=== PATIENT | female | born 1965 | race Caucasian/White ===

== ENCOUNTER 2019-08-07 12:30 | Outpatient (REF) | payer MEDICAID, SELFPAY ==
[2019-08-07 19:45] LABS: Abs Immature Grans 0.02 k/cumm (0.0-0.09); Absolute Basophil Count 0.04 k/cumm (0.0-0.2); Absolute Eosinophil Count 0.23 k/cumm (0.0-0.7); Absolute Lymphocyte Count 2.57 k/cumm (1.2-3.4); Absolute Neutrophil Count 8.64 k/cumm (1.2-6.7); Basophils % 0.3; Eosinophils % 1.8; HCT 38.5 % (36.0-46.0); HGB 12.8 g/dL (12.0-15.5); Immature Grans % 0.2 %; Lymphocytes % 20.4; Mean Corp. HGB Concentration 33.2 g/dL (32.0-36.0); Mean Corpuscular Hemoglobin 30.1 pg (27.0-33.0); Mean Corpuscular Volume 90.6 fL (80-95); Mean Platelet Volume 9.4 fL (8.0-11.0); Monocytes % 8.7; Neutrophils % 68.6; Platelet Count 547 x1000/uL (130-400); RBC 4.25 m/cumm (4.00-5.20); RBC Distribution Width 12.7 % (11.7-14.6); White Blood Cell Count 12.59 k/cumm (4.4-10.8)
[2019-08-07 20:05] LABS: ALT 21 U/L (14-59); AST 18 U/L (15-37); Albumin 3.2 g/dL (3.4-5.0); Alkaline Phosphatase 78 U/L (46-116); Anion Gap 7.7 mmol/L (3-11); BUN 12 mg/dL (7-18); Bilirubin, Total 0.2 mg/dL (0.2-1.0); CO2 28.3 mmol/L (21.0-32.0); Calcium 9.3 mg/dL (8.5-10.1); Chloride 100 mmol/L (98-107); Glucose 86 mg/dL (74-106); Potassium 4.1 mmol/L (3.5-5.1); Sodium 136 mmol/L (136-145); TSH (W/Ref FT4) 0.25 uIU/mL (0.36-3.74); Total Protein 7.4 g/dL (6.4-8.2)
[2019-08-07 20:50] LABS: Hemoglobin A1C 5.7 % (3.8-5.6)
[2019-08-07 21:12] LABS: FREE T4 1.18 ng/dL (0.76-1.46)
[2019-08-09 08:48] LABS: Thyroglobulin Antibody 193 U/mL (<=60); Thyroperoxidase Antibody <28 U/mL (<=60)
[2019-08-13 13:12] LABS: Thyrotropin Receptor Ab <1.00 IU/L
== END 2019-08-07 12:50 ==
LOC: NCHCN 12:30
PROVIDERS: PCP Internal Medicine; Visit Provider Physician Assistant
DX: J02.9 Acute pharyngitis, unspecified (principal); R73.03 Prediabetes; E06.9 Thyroiditis, unspecified; J30.2 Other seasonal allergic rhinitis; E16.2 Hypoglycemia, unspecified
CPT/HCPCS: 80053; 86376; 83036; 84235; 84439; 84443; 85025

== ENCOUNTER 2019-08-30 02:17 | Outpatient (CLI) | payer MEDICAID, SELFPAY ==
--- NOTE | 2019-08-30 13:00 | DI.US_ITS ---
EXAM: US THYROID CLINICAL HISTORY: THYROIDITIS, E06.9 TECHNIQUE: Ultrasound performed using standard protocol. COMPARISON: No exams were available for comparison FINDINGS: Thyroid ultrasound was performed according to the usual protocol. Right thyroid lobe measures 50 x 2 3 x 16 millimeters, left thyroid lobe measures 43 x 15 x 13 millimeters. Thyroid isthmus is about 2 millimeters in thickness. There is marked heterogeneity of thyroid parenchyma. Multiple focal nodules are also identified, non e larger than 9 millimeters in diameter. These all appear fairly well circumscribed and are hyperech oic to hypoechoic in appearance. TIRADS score, TR 4. No prior study available for comparison. IMPRESSION: Findings consistent with multinodular goiter. No dominant thyroid nodule identified. Multiple small nodules, TIRADS score TR 4. Follow-up examination may be obtained in 12 months due to the size and indeterminate appearance of some of these lesions. DATA REPOSITORY:
== END 2019-08-30 02:37 ==
PROVIDERS: PCP Internal Medicine; Visit Provider Physician Assistant
DX: E06.5 Other chronic thyroiditis (principal); E04.2 Nontoxic multinodular goiter
CPT/HCPCS: 76536

== ENCOUNTER 2019-11-12 13:36 | Outpatient (REF) | payer MEDICAID, SELFPAY ==
[2019-11-12 20:17] LABS: FREE T4 0.75 ng/dL (0.76-1.46); TSH 6.74 uIU/mL (0.36-3.74)
[2019-11-12 20:20] LABS: Hemoglobin A1C 5.2 % (3.8-5.6)
== END 2019-11-12 13:56 ==
LOC: NCHCN 13:36
PROVIDERS: PCP Internal Medicine; Visit Provider Physician Assistant
DX: E06.9 Thyroiditis, unspecified (principal); R73.03 Prediabetes
CPT/HCPCS: 83036; 84439; 84443

== ENCOUNTER 2020-01-22 12:15 | Outpatient (REF) | payer MEDICAID, SELFPAY ==
--- NOTE | 2020-01-22 11:55 | PAPFT_PTH ---
PATIENT: Traci Santana LOC: [facility] U#:[id number] AGE/SX: 54/F ROOM: RE01/22/[address]: Celeste Barcenas : 1965 BED: DIS: 01/22/2020 SPEC #: [id number] RECD: 01/23/20 12:45 STATUS: CHARLES REQ #: [id number] AFSHIN: 01/22/20 11:[address]: Celeste Barcenas DEPT: [facility] Cytology RECD BY: Arielle Rapp ENTERED: 01/23/20 12:45 SP TYPE: PAPFT OTHR DR: Pantera Zavala Tissues: 1 - CX/ENDOCX FOR PAP SMEARS Procedures: PAP THIN PREP/UVM Screening HPV DNA PROBE Comments: [id number] ([facility] [place])
[2020-01-22 20:06] LABS: Abs Immature Grans 0.02 10^3/uL (0.0-0.06); Absolute Basophil Count 0.07 10^3/uL (0.0-0.2); Absolute Eosinophil Count 0.22 10^3/uL (0.0-0.7); Absolute Neutrophil Count 5.66 10^3/uL (1.2-6.7); Basophils % 0.7; Eosinophils % 2.3; HCT 38.7 % (36.0-46.0); HGB 13.1 g/dL (11.2-15.7); Immature Grans % 0.2; Lymphocytes % 29.3; MCH 31.9 pg (27.0-33.0); MCHC 33.9 % (32.0-36.0); MCV 94.2 fL (80-95); MPV 10.3 fL (8.0-11.0); Monocytes % 8.4; Neutrophils % 59.1; Nucleated RBC 0 %; Platelet Count 328 10^3/uL (130-400); RBC 4.11 10^6/uL (3.93-5.22); RDW-SD 41.6 fL; WBC 9.57 10^3/uL (4.4-10.8)
[2020-01-22 20:22] LABS: ALT 26 U/L (14-59); AST 24 U/L (15-37); Albumin 3.7 g/dL (3.4-5.0); Alkaline Phosphatase 59 U/L (46-116); Anion Gap 7.4 mmol/L (3-11); BUN 17 mg/dL (7-18); Bilirubin, Total 0.3 mg/dL (0.2-1.0); CO2 26.6 mmol/L (21.0-32.0); CREATININE 0.75 mg/dL (0.55-1.02); Chloride 102 mmol/L (98-107); Glucose 90 mg/dL (74-106); LDL CHOLESTEROL 132 mg/dL (<100); Potassium 4.1 mmol/L (3.5-5.1); Sodium 136 mmol/L (136-145); Total Protein 7.2 g/dL (6.4-8.2)
[2020-01-22 20:44] LABS: FREE T4 0.85 ng/dL (0.76-1.46)
[2020-01-29 11:59] LABS: T3, Total 141 ng/dL (97-169)
[2020-01-31 10:41] LABS: FSH 8.2 mIU/mL; LH 1.4 mIU/mL; Thyroglobulin Antibody 47 U/mL (<or=60); Thyroperoxidase Antibody 31 U/mL (<or=60)
== END 2020-01-22 12:35 ==
LOC: NCHCN 12:15
PROVIDERS: PCP Internal Medicine; Visit Provider Physician Assistant
DX: N92.0 Excessive and frequent menstruation with regular cycle (principal); R73.03 Prediabetes; Z13.220 Encounter for screening for lipoid disorders; E06.9 Thyroiditis, unspecified; Z12.4 Encounter for screening for malignant neoplasm of cervix; Z01.419 Encounter for gynecological examination (general) (routine) without abnormal findings; Z11.59 Encounter for screening for other viral diseases
CPT/HCPCS: 80053; 83721; 86376; 88142; 83001; 83002; 84439; 84443; 84480; 85025; 87624

== ENCOUNTER 2020-01-31 00:36 | Outpatient (CLI) | payer MEDICAID, SELFPAY ==
--- NOTE | 2020-01-31 | DI.US_ITS ---
EXAM: US PELVIS TRANSVAGINAL CLINICAL HISTORY: IRREGULAR PERIODS,N92.6,MENORRHAGIA,N92.0. TECHNIQUE: Transabdominal and transvaginal pelvic ultrasound was performed using standard protocol. COMPARISON: No exams were available for comparison FINDINGS: KIDNEYS: Kidneys are symmetric in size. No evidence of renal calculi. No evidence of hydronephrosis. No renal mass or cyst identified. UTERUS: Position: Anteverted. Size: 7.7 long by 4.3 AP by 5.4 transverse cm Endometrium: 0.3 cm. Normal for patient's menstrual status. Myometrium: Several isoechoic and hypoechoic masses within the myometrium. This is consistent with m ultiple fibroids. The largest measures 1.9 x 1.5 x 1.3 cm and is located in the posterior body. Cervix: Nabothian cysts. OVARIES: Right: 2.8 x 1.4 x 1.7 cm Cyst or mass: None. Left: Not visualized. No left adnexal mass seen sonographically. DOPPLER: Color: Symmetric and uniform flow to both ovaries. No hyperemia. CUL-DE-SAC: Free fluid: None. Other: None. IMPRESSION: 1. Normal sonographic appearance of the kidneys. 2. Uterine fibroids. 3. Unremarkable right ovary. Left ovary not visualized sonographically. No left adnexal mass seen s onographically. DATA REPOSITORY:
== END 2020-01-31 00:56 ==
PROVIDERS: PCP Physician Assistant; Visit Provider Physician Assistant
DX: N92.0 Excessive and frequent menstruation with regular cycle (principal); N92.6 Irregular menstruation, unspecified; D25.9 Leiomyoma of uterus, unspecified
CPT/HCPCS: 76830; 76856

== ENCOUNTER 2020-02-19 01:43 | Outpatient (CLI) | payer MEDICAID, SELFPAY ==
--- NOTE | 2020-02-19 11:56 | DI.MAMMO_ITS ---
EXAM: MAMMO SCREENING CLINICAL HISTORY: SCREENING,BASELINE,Z12.31 TECHNIQUE: Mammograms were interpreted according to the usual protocol including computer analysis w [employer] CAD system, tomosynthesis and C-view imaging. COMPARISON: None. Baseline examination. FINDINGS: The breasts are composed of mainly fatty density , Breast Density category A. No suspicious masses or suspicious microcalcifications are seen. . No skin thickening or abnormal axillary lymph nodes are seen. There has been no significant change from prior exams. IMPRESSION: BI-RADS Category 1, Negative mammogram Yearly screening mammography is recommended. Breast Density - Category A, fatty density. A negative radiographic report should not delay biopsy if a dominant or clinically suspicious mass is present. Up to ten percent of cancers are not identified on mammography. A negative report may reinforce clinical impression. Adenosis and dense breasts may obscure an underlying neoplasm. False positive reports average 6 to 10%. Patient will receive a letter notifying them of these results.
== END 2020-02-19 02:03 ==
PROVIDERS: PCP Physician Assistant; Visit Provider Physician Assistant
DX: Z12.31 Encounter for screening mammogram for malignant neoplasm of breast (principal)
CPT/HCPCS: 77063; 77067

== ENCOUNTER 2020-04-17 04:27 | Outpatient (CLI) | payer MEDICAID, SELFPAY ==
[2020-04-18 22:13] LABS: COVID-19 RT-PCR Result NEGATIVE (Negative)
== END 2020-04-17 04:47 ==
PROVIDERS: PCP Physician Assistant; Visit Provider Surgery
DX: Z11.52 Encounter for screening for COVID-19 (principal); Z01.818 Encounter for other preprocedural examination
CPT/HCPCS: U0003

== ENCOUNTER 2020-04-21 08:14 | Day surgery (SDC) | payer MEDICAID, SELFPAY ==
--- NOTE | 2020-04-21 07:14 | W.COLOREPORT ---
Date of service: 04/21/20 Time of Service: : Colonoscopy Report Date of procedure: 04/21/20 Pre-op diagnosis general: Colon Cancer Screening Post-op diagnosis procedure note: other (polyp, internal and external hemorrhoids) Procedure: Colonoscopy with polypectomy Surgeon: Jennifer Cruz Anesthesia proc note operative: other (General/ASA 2/Rachel Quintero, LIZ) Estimated blood loss (mL): 2 Pathology: other (descending polyp) Complications: None Disposition: same day Indications: The patient is here for Colonoscopy pre-op. She has no family history of colon cancer. She has not had any bowel habit changes. -Discussed colonoscopy bowel prep as well as the procedure. Discussed possible complications of the procedure to include bleeding, pain, perforation, missed small lesion/polyp, sore throat, aspiration and adverse reaction to the medications. Questions were answered to patient?s satisfaction. No guarantees were implied or given. Prep: Miralax/Dulcolax Procedure Start Time: : Procedure End Time: : Retraction Time: 17 minutes Findings: external hemorrhoids internal hemorrhoids grade 1 one small polyp Procedure Description: After informed consent was obtained the patient was taken to the procedure room and placed in a left decubitous position. Monitors were applied and a time out was done. The patients name, date of , procedure, allergies to medications and metal in their body was reviewed. The patient was then sedated. Once sedated and comfortable a rectal exam was done. External exam revealed a couple of external hemorrhoids. Internal exam revealed a normal sphincter tone and no palpable masses. The scope was then introduced and retro-flexed. Grade 1 internal hemorrhoids were identified. No polyps or masses were identified on retro-flexion. The scope was then advanced to the cecum without difficulty. The ileocecal valve and appendiceal orifice were identified. The prep was good. The scope was then slowly retracted over 17 minutes back into the rectum. Polyps were removed with cold forceps in the descending colon. There was no diverticulosis noted. The scope was removed and the patient was woken up and taken back to Same day surgery in stable condition. The patient tolerated the procedure well and there were no immediate complications. Follow up: The patient should follow up in 5 years unless they develop changes in bowel habits or other new gastrointestinal complaints.
--- NOTE | 2020-04-21 07:15 | W.PM.DSUDISC ---
Discharge Plan Disposition Patient Disposition: HOME Condition: Good Discharge Details Reason For Visit: Colonoscopy Attending Provider: Jennifer Cruz Primary Care Provider: Celeste Barcenas Home Meds and New Rx's Prescriptions: Continued sumatriptan succinate [Imitrex] 50 mg tablet See Rx Instructions PO .COMPLEX RF: 0 Grapefruit Oil 1 applic miscellaneous DAILY RF: 0 ascorbic acid (vitamin C) 500 mg capsule 500 mg PO DAILY RF: 0 multivitamin [Daily Multi-Vitamin] 1 EACH tablet 1 tab PO DAILY RF: 0 ibuprofen 200 MG tablet 1 tab PO PRN PRNRF: 0 magnesium 200 MG tablet 1 tab PO DAILY RF: 0 cholecalciferol (vitamin D3) [Vitamin D3] 2,000 UNIT capsule 1 tab PO DAILY RF: 0 Thrivite Rx 29 mg iron- 1 mg Tablet 1 tab PO DAILY RF: 0 Discontinued polyethylene glycol 3350 17 gram/dose powder 238 g PO ONCE Qty: 238 RF: 0 bisacodyl [Dulcolax (bisacodyl)] 5 mg tablet,delayed release (DR/EC) 5 mg PO ONCE Qty: 4 RF: 0 Discharge Instructions Instructions: Hemorrhoids (DC) Additional Instructions: Findings: one small polyp small internal and external hemorrhoids Follow up: 5 years Please call if you develop: fevers >101.5 Nausea or Vomiting Abdominal pain that is not transient DAY SURGERY UNIT POST ENDOSCOPY INSTRUCTIONS 1. Because there will be medication in your system for the next 24 hours, you may feel a little sleepy. Your coordination will be affected. Therefore: a. Do not drive or operate dangerous equipment for 24 hours. b. Do not drink alcohol beverages for 24 hours (not even beer). c. Plan to go home and rest for the day. 2. Generally there are no restrictions on your activity after a day or so has gone by, but you may feel a bit fatigued for a few days. 3 After you arrive home you may have a light meal and return to a normal diet as you can tolerate it without feeling sick to your stomach. 4. After surgery, you may feel pain or discomfort. This should be only transient, but if it persists please contact your doctor. 5. If there are any questions regarding the findings of your procedure, please feel free to contact your doctor. 6. If you are unable to contact your doctor with a problem, contact the hospital at [phone]. 7. Continue all your regular medications unless directed otherwise. I understand the above instructions and have no questions. Signature of Patient or Responsible Adult Escort Date/Time Name of Responsible Adult Escort Signature of Nurse Date/Time Activity:: Activity as Tolerated Diet:: high fiber diet Discharge Orders Discharge Orders: Discharge Order (Routine); Ordered 04/21/20 Ordered By: Jennifer Cruz
[2020-04-21 08:21] VITALS: BP 125/71; PULSE 72; RESP 17; TEMP 36.4; O2SAT 98
[2020-04-21] MEDS: Lactated Ringers 1,000 ML 80 ML IV (08:50)
--- NOTE | 2020-04-21 09:49 | BOWEL_PTH ---
PATIENT: Traci Santana LOC: [facility] U#:[id number] AGE/SX: 55/F ROOM: RE04/21/[address]: Jennifer Cruz MD : 1965 BED: DIS: 04/21/2020 SPEC #: [id number] RECD: 04/21/20 12:08 STATUS: CHARLES REManuela #: [id number] AFSHIN: 04/21/20 09:[address]: Jennifer Cruz DEPT: Surgical Specimen RECD BY: Arielle Rapp ENTERED: 04/21/20 12:08 SP TYPE: Bowel OTHR DR: Celeste Barcenas Tissues: 1 - BIOPSY BOWEL Procedures: GROSS AND MICRO LEVEL 4 Comments: [id number]
[2020-04-21 10:30] VITALS: BP 131/85; PULSE 62; RESP 18; TEMP 36.4; O2SAT 98
== END 2020-04-21 11:13 | disposition home or self-care (01) ==
LOC: SUR 08:15
PROVIDERS: PCP Physician Assistant; Visit Provider Surgery
PROC: 0DJD8ZZ Inspection of Lower Intestinal Tract, Via Natural or Artificial Opening Endoscopic (ICD-10-PCS; CPT 45378; principal; 2020-04-21 09:45)
DX: Z12.11 Encounter for screening for malignant neoplasm of colon (principal); K63.5 Polyp of colon; K64.0 First degree hemorrhoids; K64.8 Other hemorrhoids
CPT/HCPCS: 45380; 88305; J2001

== ENCOUNTER 2020-09-26 19:13 | Emergency (ER) | payer MEDICAID, SELFPAY ==
[2020-09-26 19:12] VITALS: BP 124/104; PULSE 93; RESP 18; TEMP 37; O2SAT 96
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
[2020-09-26 19:38] LABS: Abs Immature Grans 0.03 10^3/uL (0.0-0.06); Absolute Basophil Count 0.07 10^3/uL (0.0-0.2); Absolute Eosinophil Count 0.26 10^3/uL (0.0-0.7); Absolute Lymphocyte Count 2.48 10^3/uL (1.2-3.4); Absolute Monocyte Count 0.87 10^3/uL (0.1-0.8); Basophils % 0.7; Eosinophils % 2.6; HCT 35.3 % (36.0-46.0); HGB 11.8 g/dL (11.2-15.7); Immature Grans % 0.3; Lymphocytes % 24.5; MCH 31.5 pg (27.0-33.0); MCHC 33.4 % (32.0-36.0); MCV 94.1 fL (80-95); MPV 9.3 fL (8.0-11.0); Monocytes % 8.6; Neutrophils % 63.3; Nucleated RBC 0 %; Platelet Count 287 10^3/uL (130-400); RBC 3.75 10^6/uL (3.93-5.22); RDW 12.4 % (11.7-14.6); RDW-SD 43.3 fL; WBC 10.11 10^3/uL (4.4-10.8)
[2020-09-26 19:59] LABS: ALT 25 U/L (14-59); AST 24 U/L (15-37); Albumin 3.3 g/dL (3.4-5.0); Alkaline Phosphatase 53 U/L (46-116); Anion Gap 8.5 mmol/L (3-11); BUN 23 mg/dL (7-18); Bilirubin, Total 0.2 mg/dL (0.2-1.0); CO2 26.5 mmol/L (21.0-32.0); CREATININE 0.9 mg/dL (0.55-1.02); Calcium 8.7 mg/dL (8.5-10.1); Chloride 104 mmol/L (98-107); Glucose 93 mg/dL (74-106); Lipase 119 U/L (73-393); Potassium 4.2 mmol/L (3.5-5.1); Sodium 139 mmol/L (136-145)
--- NOTE | 2020-09-26 20:00 | DI.CT_ITS ---
Exam(s) CT BRAIN NECK CTA EXAM: CT BRAIN NECK CTA CLINICAL HISTORY: L sided headache, possible seizure. TECHNIQUE: Imaging Protocol: Axial CT angiography was performed with multi-slice acquisition and mu lti-planar and/or 3D reconstructions. CONTRAST MATERIAL: Intravenous: Omnipaque 350 Contrast volume:structured data in ml COMPARISON: No exams were available for comparison FINDINGS: CT Head W/O and W contrast: Ventricles and Extra axial spaces: Normal in size and morphology for the patient's age. Hemorrhage: None. Cerebral parenchyma: Normal. Midline shift: None. Brainstem/Cerebellum: Normal. Calvarium: Normal. Visualized Paranasal sinuses/Mastoids: Clear. Soft Tissues: Unremarkable. Enhancement: Normal. CTA Brain W: Internal Carotid Arteries: Petrous: Normal. Cavernous: Normal. Cerebral: Normal. Middle Cerebral Arteries: Right: No aneurysm, occlusion or significant stenosis. Left: No aneurysm, occlusion or significant stenosis. Anterior Cerebral Arteries: Right: No aneurysm, occlusion or significant stenosis. Left: No aneurysm, occlusion or significant stenosis. Posterior cerebral Arteries: Right: No aneurysm, occlusion or significant stenosis. Left: No aneurysm, occlusion or significant stenosis. Vertebral Arteries: Right: No aneurysm, occlusion or significant stenosis. Left: No aneurysm, occlusion or significant stenosis. Basilar Artery: No aneurysm, occlusion or significant stenosis. CTA Neck W: Common Carotid: Right: No aneurysm, occlusion or significant stenosis. Left: No aneurysm, occlusion or significant stenosis. External Carotid: Right: No aneurysm, occlusion or significant stenosis. Left: No aneurysm, occlusion or significant stenosis. Internal Carotid: Right: No aneurysm, occlusion or significant stenosis. Left: No aneurysm, occlusion or significant stenosis. Vertebral Artery: Right: No aneurysm, occlusion or significant stenosis. Left: No aneurysm, occlusion or significant stenosis. Lung Apices: Normal. Bones: Degenerative disc changes. Soft Tissues: Normal. IMPRESSION: 1. Normal CTA examination of the [place]. 2. Unremarkable CT Head. 3. Normal CTA examination of the neck. RADIATION DOSE DELIVERED: 2,013.33mGy.cm Total DLP DATA REPOSITORY: All CT scans at this facility are submitted to the National Radiology Data Registry (NRDR) Dose Index Registry (DIR) with the [employer] (A[employer]). RADIATION OPTIMIZATION: All CT scans at this facility use at least one of these dose optimization te chniques: automated exposure control; mA and/or kV adjustment per patient size (includes targeted exa ms where dose is matched to clinical indication); or iterative reconstruction.
[2020-09-26 20:12] LABS: ETHANOL BLOOD < 3.0 mg/dL (<3)
[2020-09-26] MEDS: ACETAMINOPHEN 1,000 MG/100 ML BTL 400 MG IVPB (20:24)
[2020-09-26] MEDS: Normal Saline 1,000 ML 1000 ML IV (20:24)
[2020-09-26 20:25] VITALS: BP 127/89; PULSE 77; RESP 16; O2SAT 99
[2020-09-26 20:54] LABS: TSH (W/Ref FT4) 9.17 uIU/mL (0.36-3.74)
[2020-09-26] MEDS: Omnipaque 350 MG/ML 100 ML BTL IJ (21:07)
[2020-09-26] MEDS: Normal Saline Flush 10 ML SYR IVP (21:08)
[2020-09-26] MEDS: Normal Saline - Diluent 50 ML VIAL IV (21:08)
[2020-09-26 21:14] LABS: FREE T4 0.73 ng/dL (0.76-1.46)
--- NOTE | 2020-09-26 22:07 | DI.VRAD_ITS ---
PROCEDURE INFORMATION: Exam: CT Angiography Head With Contrast, Arteriography Exam date and time: 09/26/2020 8:11 PM Age: 55 years old Clinical indication: Other: L sided headache, possible seizure TECHNIQUE: Imaging protocol: Computed tomography angiography of the head with contrast. Exam focused on the arteries. 3D rendering (Not supervised by radiologist): MIP and/or 3D reconstructed images were created by the technologist. Total images: 2781 Radiation optimization: All CT scans at this facility use at least one of these dose optimization techniques: automated exposure control; mA and/or kV adjustment per patient size (includes targeted exams where dose is matched to clinical indication); or iterative reconstruction. Contrast material: OMNIPAQUE 350; Contrast volume: 85 ml; Contrast route: INTRAVENOUS (IV); COMPARISON: SD US THYROID 08/30/2019 12:30 PM FINDINGS: ANTERIOR CIRCULATION: Right internal carotid artery: Unremarkable. Intracranial segment is patent with no significant stenosis. No aneurysm. Right middle cerebral artery: Unremarkable. No occlusion or significant stenosis. No aneurysm. Right anterior cerebral artery: Unremarkable. No occlusion or significant stenosis. No aneurysm. Left internal carotid artery: Unremarkable. Intracranial segment is patent with no significant stenosis. No aneurysm. Left middle cerebral artery: Unremarkable. No occlusion or significant stenosis. No aneurysm. Left anterior cerebral artery: Unremarkable. No occlusion or significant stenosis. No aneurysm. POSTERIOR CIRCULATION: Right vertebral artery: Unremarkable. No occlusion or significant stenosis. No aneurysm. Left vertebral artery: Unremarkable. No occlusion or significant stenosis. No aneurysm. Basilar artery: Unremarkable. No occlusion or significant stenosis. No aneurysm. Right posterior cerebral artery: Unremarkable. No occlusion or significant stenosis. No aneurysm. Left posterior cerebral artery: Unremarkable. No occlusion or significant stenosis. No aneurysm. Brain: No definite mass, mass effect, or midline shift. Cerebral ventricles: No ventriculomegaly. Bones/joints: Unremarkable. No acute fracture. Soft tissues: Unremarkable. IMPRESSION: No acute intracranial hemorrhage. No large vessel stenosis or occlusion. PROCEDURE INFORMATION: Exam: CT Angiography Neck With Contrast Exam date and time: 09/26/2020 8:11 PM Age: 55 years old Clinical indication: Other: L sided headache, possible seizure TECHNIQUE: Imaging protocol: Computed tomography angiography of the neck with contrast. 3D rendering (Not supervised by radiologist): MIP and/or 3D reconstructed images were created by the technologist. Radiation optimization: All CT scans at this facility use at least one of these dose optimization techniques: automated exposure control; mA and/or kV adjustment per patient size (includes targeted exams where dose is matched to clinical indication); or iterative reconstruction. Contrast material: OMNIPAQUE 350; Contrast volume: 85 ml; Contrast route: INTRAVENOUS (IV); COMPARISON: SD US THYROID 08/30/2019 12:30 PM FINDINGS: Right common carotid artery: No stenosis. No dissection or occlusion. Right internal carotid artery: No stenosis of the extracranial segment. No dissection or occlusion. Right external carotid artery: No occlusion or stenosis of the origin. Left common carotid artery: No stenosis. No dissection or occlusion. Left internal carotid artery: No stenosis of the extracranial segment. No dissection or occlusion. Left external carotid artery: No occlusion or stenosis of the origin. Right vertebral artery: No stenosis. No dissection or occlusion. Left vertebral artery: No stenosis. No dissection or occlusion. Thyroid: There is a sub cm low-density left thyroid nodule. No further evaluation is necessary. Soft tissues: Normal. No significant soft tissue swelling. Bones/joints: No acute fracture. IMPRESSION: No hemodynamically significant stenosis. REFERENCES: NASCET CRITERIA. The degree of internal carotid artery stenosis is based on NASCET criteria. Normal is no stenosis. Mild is less than 50% stenosis. Moderate is 50-69% stenosis. Severe is 70% to 99% stenosis. Total occlusion is no detectable patent lumen. Dictated and Authenticated by: Roxie Johnson MD. Ordering:HA Abel MD
[2020-09-26 22:42] VITALS: BP 135/79; PULSE 74; RESP 16; O2SAT 97
[2020-09-26] MEDS: levETIRAcetam 500 MG TAB 2000 MG PO (22:44)
--- NOTE | 2020-09-26 22:55 | NUR.NOTE ---
Nursing Note:referal sent to cm for appointment made with [place] which ever is quicker for onset april 09/26/20
--- NOTE | 2020-09-30 11:55 | CMPROGNOTE_ITS ---
- If Service Date Differs Date of service: 09/30/20 Time of Service: 11:55 Care Management Progress Note Traci is seen in the ED on 09/26/20 for a migraine and a new onset of seizures. At the request of ED provider, CM coordinates referrals to [facility] neurology and to [facility] to assist Traci in obtaining the soonest available appointment.
== END 2020-09-26 23:30 | disposition home or self-care (01) ==
PROVIDERS: Emergency Provider Physician Assistant; PCP Physician Assistant
DX: R56.9 Unspecified convulsions (principal); G43.809 Other migraine, not intractable, without status migrainosus
CPT/HCPCS: 70496; 70498; 80053; 81025; 83690; 96361; 96365; 99284; 80320; 84439; 84443; 85025; J0131; J3490

== ENCOUNTER 2020-11-12 12:38 | Outpatient (REF) | payer MEDICAID, SELFPAY ==
[2020-11-12 20:35] LABS: TSH (W/Ref FT4) 2.79 uIU/mL (0.36-3.74)
== END 2020-11-12 12:39 | disposition home or self-care (01) ==
LOC: NCHCN 12:38
PROVIDERS: PCP Physician Assistant; Visit Provider Physician Assistant
DX: E03.9 Hypothyroidism, unspecified (principal)
CPT/HCPCS: 84443

== ENCOUNTER 2020-12-22 01:36 | Outpatient (CLI) | payer MEDICAID, SELFPAY ==
--- NOTE | 2020-12-22 | DI.US_ITS ---
Exam(s) US THYROID EXAM: US THYROID CLINICAL HISTORY: HYPOTHYROIDISM,E03.9,MULTINODULAR THYROID GOITER,E04.2. TECHNIQUE: Ultrasound thyroid performed using standard protocol. COMPARISON: CT CT BRAIN NECK CTA from 09/26/2020 FINDINGS: Both thyroid lobes exhibit normal size, as does the isthmus. The echotexture of the thyroid gland is normal with the exception of the finding described below in the left lobe. LEFT THYROID LOBE: Measures 1.3 cm AP x 1.3 cm wide x 3.4 cm craniocaudal There is a solitary nodule in the left lobe, located anteriorly. Characteristics of this nodule are as follows: Nodule Size: Measures 9 x 9 by 9 millimeters Composition: Solid-2 points Echogenicity: Isoechoic compared to surrounding parenchyma-1 point Shape: Not taller than wider-0 points Margin: Smooth-but exhibits extrathyroidal extension-3 points Echogenic Foci:comet-tail type-0 points Total Points for this nodule: 6 ACR Ti-Rads Category: TR4 ISTHMUS: Normal thickness. There are no nodules in the isthmus. RIGHT THYROID LOBE: Measures 0.9 cm AP x 1.3 wide x 3.4 cm craniocaudal The right lobe contains a solitary tiny benign appearing 1.6 x 1.4 millimeter colloid cyst. No solid nodules Incidentally noted is soft plaque at the right carotid bulb LYMPH NODES: There is no significant adenopathy. IMPRESSION: 1. There is a solitary solid nodule in the left thyroid lobe measuring 9 x 9 x 9 millimeter and altho ugh this fall short of criteria for requiring FNA at this time, I recommend six-month follow-up to en sure stability. This is because this nodule bulges the anterior aspect of the gland TiRads: 4 2. Incidentally noted is some soft plaque at the right carotid bifurcation. Recommend follow-up Dopp ler imaging of the carotid arteries in the neck. 3. There is no significant lymphadenopathy. DATA REPOSITORY:
== END 2020-12-22 01:56 ==
PROVIDERS: PCP Physician Assistant; Visit Provider Physician Assistant
DX: E03.9 Hypothyroidism, unspecified (principal); E04.2 Nontoxic multinodular goiter; I65.21 Occlusion and stenosis of right carotid artery
CPT/HCPCS: 76536

== ENCOUNTER 2021-01-12 01:33 | Outpatient (CLI) | payer MEDICAID, SELFPAY ==
--- NOTE | 2021-01-12 | DI.US_ITS ---
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 TECHNIQUE: Ultrasound carotids performed using grayscale, color-flow, and spectral Doppler imaging. COMPARISON: US US THYROID from 12/22/2020 FINDINGS: RIGHT CAROTID ARTERY: There is mild plaque in the common carotid artery. There is soft noncalcified plaque in the right ca rotid bulb. Maximum systolic velocity in the proximal and right mid ICA is 114/38, consistent with l ess than 50 percent stenosis. LEFT CAROTID ARTERY: There is mild plaque noted in the left carotid bulb and proximal left ICA. Maximum systolic velocity is 122/44 which would give estimate stenosis at 50-69 percent. VERTEBRAL ARTERIES: Antegrade flow demonstrated in both vertebral arteries. Measurements: R Bulb: 78.4cm/s PS / 25.7cm/s ED R CCA: 91.3cm/s PS / 30.8cm/s ED R ECA: 101.2cm/s PS / 21cm/s ED R ICA Prox: 101.9cm/s PS /36.2cm/s ED R ICA Mid: 113.5cm/s PS / 37.6cm/s ED R ICA Distal: 112.1cm/s PS /35.4cm/s ED R Vert: 61cm/s PS / 18.9cm/s ED R SVR: 1.24 R DVR: 1.22 L Bulb: 64.8cm/s PS /18.5cm/s ED L CCA: 92cm/s PS / 29.5cm/s ED L ECA: 133.3cm/s PS /31.5cm/s ED L ICA Prox:70.6cm/s PS / 26cm/s ED L ICA Mid: 122.2cm/sPS / 43.5cm/s ED L ICA Distal: 99cm/s PS / 39.8cm/s ED L Vert: 61.7cm/s PS / 21.2cm/s ED L SVR: 1.33 L DVR: 1.47 IMPRESSION: There is soft plaque evident at the carotid bulbs and proximal ICAs bilaterally. Amount of stenosis on the right side estimated at less than 50 percent. Amount of stenosis on the left side is estimate d at 50-69 percent. Antegrade flow is demonstrated in both vertebral arteries Criteria for Carotid Stenosis: Normal: ICA PSV <125 cm/s no plaque or intimal thickening is visible. <50% stenosis: ICA PSV <125 cm/s and plaque or intimal thickening is visible. 50-69% stenosis: ICA PSV is 125-250 cm/s and plaque is visible. >70% stenosis to near occlusion: ICA PSV >250 cm/s with visible plaque and luminal narrowing. DATA REPOSITORY:
== END 2021-01-12 01:53 ==
PROVIDERS: PCP Physician Assistant; Visit Provider Physician Assistant
DX: I65.23 Occlusion and stenosis of bilateral carotid arteries (principal)
CPT/HCPCS: 93880

== ENCOUNTER 2021-01-16 08:31 | Outpatient (REF) | payer MEDICAID, SELFPAY ==
[2021-01-16 20:26] LABS: ALT 29 U/L (14-59); AST 21 U/L (15-37); Albumin 3.5 g/dL (3.4-5.0); Alkaline Phosphatase 64 U/L (46-116); Anion Gap 7.6 mmol/L (3-11); BUN 20 mg/dL (7-18); Bilirubin, Total 0.2 mg/dL (0.2-1.0); CO2 27.4 mmol/L (21.0-32.0); Calcium 8.8 mg/dL (8.5-10.1); Calculated LDL 171 mg/dL (<100); Chloride 103 mmol/L (98-107); Cholesterol 244 mg/dL (<200); Glucose 91 mg/dL (74-106); HDL Cholesterol 49 mg/dL (40-60); Potassium 4.7 mmol/L (3.5-5.1); Sodium 138 mmol/L (136-145); Triglyceride 124 mg/dL (<150)
[2021-01-16 21:25] LABS: Hemoglobin A1C 5.6 % (<5.7)
== END 2021-01-16 08:32 | disposition home or self-care (01) ==
LOC: NCHCN 08:31
PROVIDERS: PCP Physician Assistant; Visit Provider Physician Assistant
DX: R73.03 Prediabetes (principal); I65.23 Occlusion and stenosis of bilateral carotid arteries
CPT/HCPCS: 80053; 80061; 83036

== ENCOUNTER 2021-04-15 10:05 | Outpatient (REF) | payer MEDICAID, SELFPAY ==
[2021-04-15 22:36] LABS: ALT 51 U/L (14-59); AST 36 U/L (15-37); Albumin 3.6 g/dL (3.4-5.0); Alkaline Phosphatase 60 U/L (46-116); Anion Gap 5.1 mmol/L (3-11); BUN 16 mg/dL (7-18); Bilirubin, Total 0.3 mg/dL (0.2-1.0); CO2 29.9 mmol/L (21.0-32.0); CREATININE 0.7 mg/dL (0.55-1.02); Calcium 8.8 mg/dL (8.5-10.1); Calculated LDL 82 mg/dL (<100); Chloride 102 mmol/L (98-107); Cholesterol 163 mg/dL (<200); Glucose 91 mg/dL (74-106); HDL Cholesterol 69 mg/dL (40-60); Potassium 4.5 mmol/L (3.5-5.1); Sodium 137 mmol/L (136-145); Total Protein 6.8 g/dL (6.4-8.2); Triglyceride 62 mg/dL (<150)
== END 2021-04-15 10:06 | disposition home or self-care (01) ==
LOC: NCHCN 10:05
PROVIDERS: PCP Physician Assistant; Visit Provider Physician Assistant
DX: R73.03 Prediabetes (principal); I65.23 Occlusion and stenosis of bilateral carotid arteries; E04.2 Nontoxic multinodular goiter; R56.9 Unspecified convulsions
CPT/HCPCS: 80053; 80061

== ENCOUNTER 2021-07-21 01:27 | Outpatient (CLI) | payer MEDICAID, SELFPAY ==
--- NOTE | 2021-07-21 11:00 | DI.RAD_ITS ---
Exam(s) XR ARTHRITIS SERIES EXAM: XR ARTHRITIS SERIES CLINICAL HISTORY: PAIN IN BILATERAL FINGERS X 3 MOS, ARTHRITIC CHANGES ON EXAM, M25.549. TECHNIQUE: 2D digital imaging was performed. Two images were obtained. COMPARISON: No exams were available for comparison FINDINGS: BONES: No acute fracture is present. No bony destructive lesion is seen. There is no periarticular o steopenia. JOINTS: No dislocation present. There is periarticular spurring and joint space narrowing in the int erphalangeal joints of both hands. The findings are most marked at the DIP joints of both index fing ers and ring fingers. There is also mild periarticular spurring at the 1st CMC joints of both hands. SOFT TISSUE: No suspicious soft tissue calcifications are present. No erosions are identified. IMPRESSION: Osteoarthritis of the hands. DATA REPOSITORY: RADIATION DOSE DELIVERED:
== END 2021-07-21 01:47 ==
PROVIDERS: PCP Physician Assistant; Visit Provider Physician Assistant
DX: M79.644 Pain in right finger(s) (principal); M79.645 Pain in left finger(s); M18.0 Bilateral primary osteoarthritis of first carpometacarpal joints; M19.041 Primary osteoarthritis, right hand; M19.042 Primary osteoarthritis, left hand
CPT/HCPCS: 73120

== ENCOUNTER 2021-08-12 06:01 | Day surgery (SDC) | payer MEDICAID, SELFPAY ==
[2021-08-12 06:31] VITALS: BP 106/80; PULSE 71; RESP 16; TEMP 36.7; O2SAT 98
[2021-08-12] MEDS: Lactated Ringers 1,000 ML 80 ML IV (07:00)
--- NOTE | 2021-08-12 07:11 | W.PREOPHP ---
Assessment and Plan Assessment and plan (1) Left carpal tunnel syndrome: Status: Acute (2) Right carpal tunnel syndrome: Status: Acute Assessment and plan: Traci is a 56-year-old has bilateral carpal tunnel syndrome. She is planning to proceed today with the right side first. She is anxious to see the results from this side before proceeding to the left side although both sides do have carpal tunnel syndrome. In the office I did discuss with her the details of surgery once again did today. I reviewed the risk of the procedure to include bleeding, infection, pain, stiffness, damage nerves and vessels, damage to muscles and tendons, nerve injury, persistent numbness, incomplete release, need for repeat procedures. Despite these risk, she elects to proceed. History of Present Illness History of Present Illness Chief Complaint: Right Carpal Tunnel Syndrome Narrative: Traci is a 56-year-old has bilateral carpal tunnel syndrome, left worse than right. However, both sides bother her. She does wonder pursue the right side first and treated for right carpal tunnel syndrome. Please see the previous office note for complete detailed history. She has no shortness of breath or chest pain. No COVID-19 symptoms nor exposures. COVID-19 negative. Review of Systems All systems reviewed & are unremarkable except as noted in HPI and below PFSH All Active Problems History of exploratory laparotomy (Acute) Exploratory laparotomy for ruptured ectopic , age 21 Thyroid dysfunction (Acute) Uterine fibroids affecting (Acute) Abnormal uterine bleeding (Acute) Uterine fibroid (Acute) Hyperplastic colon polyp (Acute) New onset seizure (Acute) History of atypical migraine (Acute) Hyperlipidemia (Acute) Bilateral carotid artery stenosis (Acute) Prediabetes (Acute) Rosacea (Acute) Gout (Chronic) Left carpal tunnel syndrome (Acute) Right carpal tunnel syndrome (Acute) Cubital tunnel syndrome on left (Acute) Medical History Abnormal colonoscopy Actinic keratoses Hemiplegic migraine Hx of seizure disorder Per pt. states she see a neurologist saw Dr. Yates states it was brought on from a migraine. Per pt. states it was a 30 second LOC seizure w/ convulsions, loss of bladder function, Last seizure 09/26/2020. Currently managed on medication. Seasonal allergies Thyroiditis Social History Smoking/Tobacco Use Status: Former Tobacco Use Quit Date: 03/28/15 Smoking risk assessment performed?: Yes Alcohol Intake: current Alcohol Intake frequency: 0-2 drinks per day Alcohol type: beer, wine and hard liquor Drug use: Never Substance use type: does not use Do you feel safe at home: Yes Do you feel safe in your relationship?: Yes Meds Allergies and Home Medications Allergies Allergy/AdvReac Type Severity Reaction Status Date / Time amoxicillin Allergy Intermediate none noted Verified 08/12/21 06:44 on referral mold Allergy Intermediate Verified 08/12/21 06:44 Penicillins Allergy Mild Skin Rash Verified 08/12/21 06:44 Home Medications Medication Instructions Recorded Confirmed Type cholecalciferol (vitamin D3) 50 1 tab PO DAILY 03/20/13 08/12/21 History mcg (2,000 unit) capsule (Vitamin D3) ibuprofen 200 mg tablet 1 tab PO PRN PRN 03/20/13 08/12/21 History magnesium 200 mg tablet 1 tab PO DAILY 03/20/13 08/12/21 History multivitamin (Daily Multi-Vitamin 1 tab PO DAILY 03/20/13 08/12/21 History tablet) sumatriptan succinate 50 mg tablet See Rx Instructions PO .COMPLEX 03/05/20 08/12/21 History (Imitrex) vitamin 1 tab PO DAILY 04/17/20 08/12/21 History no.76-iron,carbonyl 29 mg iron-folic acid 1 mg tablet (Thrivite Rx) aspirin 81 mg tablet,delayed 81 mg PO DAILY 05/27/21 08/12/21 History release levetiracetam 500 mg tablet 500 mg PO BID 05/27/21 08/12/21 History rosuvastatin 20 mg tablet 20 mg PO DAILY 05/27/21 08/12/21 History turmeric 500 mg-black pepper 1 cap PO DAILY 07/27/21 08/12/21 History extract 3 mg capsule Exam Resp Effort & Inspection: normal respiratory effort and able to speak in complete sentences Auscultation: clear to auscultation bilaterally Cardio Rate: regular rate Rhythm: regular rhythm Results Last Vital Signs Temp 36.7 C 08/12/21 06:31 Pulse 71 08/12/21 06:31 Resp 16 08/12/21 06:31 BP 106/80 08/12/21 06:31 Pulse Ox 98 08/12/21 06:31
--- NOTE | 2021-08-12 07:14 | PDOC.DSDIS_ITS ---
Discharge Plan Disposition Patient Disposition: HOME Condition: Good Discharge Details Reason For Visit: Right Carpal Tunnel Syndrome Attending Provider: Sal Claudio Primary Care Provider: Celeste Barcenas Home Meds and New Rx's Prescriptions: New acetaminophen 500 mg tablet 500 mg PO Q6H PRN PRN (Reason: pain) Qty: 40 3RF hydrocodone-acetaminophen 5-325 mg tablet 1 tab PO Q6H PRN (Reason: pain) Qty: 3 0RF ibuprofen 600 mg tablet 600 mg PO TID PRN (Reason: pain) Qty: 30 3RF Continued turmeric-turmeric ext-pepper 500-3 mg capsule 1 cap PO DAILY sumatriptan succinate [Imitrex] 50 mg tablet See Rx Instructions PO .COMPLEX Rx Instructions: take 1 tab at onset of headache; if no relief may repeat 1 tab after at least 2 hrs; max = 4 tabs/24 hr PO levetiracetam 500 mg tablet 500 mg PO BID aspirin 81 mg tablet,delayed release (DR/EC) 81 mg PO DAILY rosuvastatin 20 mg tablet 20 mg PO DAILY multivitamin [Daily Multi-Vitamin] 1 EACH tablet 1 tab PO DAILY magnesium 200 MG tablet 1 tab PO DAILY cholecalciferol (vitamin D3) [Vitamin D3] 2,000 UNIT capsule 1 tab PO DAILY Thrivite Rx 29 mg iron- 1 mg Tablet 1 tab PO DAILY Discontinued ibuprofen 200 MG tablet 1 tab PO PRN PRN Discharge Instructions Stand Alone Forms: González Dowd Tunnel Release Referrals: Sal Claudio MD [ [facility] STAFF PHYSICIAN] - Activity:: Elevate Remove Dressings/Wound Care:: 48 hours Shower/Bathe:: 48 hours Diet:: As Tolerated Discharge Orders Discharge Orders: Discharge Order (Routine); Ordered 08/12/21 Ordered By: Sal Claudio DS: Diagnosis Discharge Diagnosis (1) Left carpal tunnel syndrome: Status: Acute (2) Right carpal tunnel syndrome: Status: Acute
[2021-08-12 07:24] VITALS: BMI 27.6
--- NOTE | 2021-08-12 07:24 | W.ANESPRE ---
General Info Date of Service Date Performed: 08/12/21 Height: 5 ft 5 in Weight: 75.5 kg Body Mass Index (BMI): 27.6 Surgical Procedure: Operation Date: 08/12/21 07:40 Proposed Procedure Side Surgeon p Wrist ECTR Right Sal Claudio MD Meds Allergies and Home Medications Allergies Allergy/AdvReac Type Severity Reaction Status Date / Time amoxicillin Allergy Intermediate none noted Verified 08/12/21 06:44 on referral mold Allergy Intermediate Verified 08/12/21 06:44 Penicillins Allergy Mild Skin Rash Verified 08/12/21 06:44 Home Medication Medication Instructions Recorded cholecalciferol (vitamin D3) 50 1 tab PO DAILY 03/20/13 mcg (2,000 unit) capsule (Vitamin D3) magnesium 200 mg tablet 1 tab PO DAILY 03/20/13 multivitamin (Daily Multi-Vitamin 1 tab PO DAILY 03/20/13 tablet) sumatriptan succinate 50 mg tablet See Rx Instructions PO .COMPLEX 03/05/20 (Imitrex) vitamin 1 tab PO DAILY 04/17/20 no.76-iron,carbonyl 29 mg iron-folic acid 1 mg tablet (Thrivite Rx) aspirin 81 mg tablet,delayed 81 mg PO DAILY 05/27/21 release levetiracetam 500 mg tablet 500 mg PO BID 05/27/21 rosuvastatin 20 mg tablet 20 mg PO DAILY 05/27/21 turmeric 500 mg-black pepper 1 cap PO DAILY 07/27/21 extract 3 mg capsule acetaminophen 500 mg tablet 500 mg PO Q6H PRN PRN pain #40 tabs 08/12/21 hydrocodone 5 mg-acetaminophen 325 1 tab PO Q6H PRN pain #3 tabs 08/12/21 mg tablet ibuprofen 600 mg tablet 600 mg PO TID PRN pain #30 tabs 08/12/21 Current Visit Medications: Current Medications Generic Name Dose Route Start Last Admin Trade Name Freq PRN Reason Stop Dose Admin Acetaminophen 650 mg 08/12/21 07:10 Acetaminophen 325 Mg Tab PO Q4H PRN PRN Hydrocodone Bitart/Acetaminophen 0 tab 08/12/21 07:10 Hydrocodone 5/Acetaminophen 325 Tab PO Q3H PRN PRN Pain Ringer's Solution 1,000 mls @ 80 mls/hr 08/12/21 06:00 08/12/21 07:00 IV 09/10/21 23:59 80 mls/hr INFUSION KARAN Administration Cefazolin Sodium/Dextrose 2 gm in 50 mls @ 100 mls/hr 08/12/21 06:00 Ancef Duplex IVPB 09/10/21 23:59 PREOP KARAN IV Miscellaneous Supplies 1 each 08/12/21 06:00 Iv Access IV 09/10/21 23:59 DIRECTED KARAN Sodium Chloride 0 ml 08/12/21 06:00 Normal Saline Flush 10 Ml Syr IV 09/10/21 23:59 PRN PRN Sodium Chloride 0 ml 08/12/21 06:00 Normal Saline 10 Ml Vial IJ 09/10/21 23:59 DIRECTED PRN Sterile Water 0 ml 08/12/21 06:00 Water,Injection,Sterile 10 Ml Vial IJ 09/10/21 23:59 DIRECTED PRN PFSH Active Problems Active Problems: Problem Status Onset Code History of exploratory laparotomy Z98.890 Thyroid dysfunction E07.9 Uterine fibroids affecting O34.10, D25.9 Abnormal uterine bleeding N93.9 Uterine fibroid D25.9 Hyperplastic colon polyp K63.5 New onset seizure R56.9 History of atypical migraine Z86.69 Hyperlipidemia E78.5 Bilateral carotid artery stenosis I65.23 Prediabetes R73.03 Rosacea L71.9 Gout M10.9 Left carpal tunnel syndrome G56.02 Right carpal tunnel syndrome G56.01 Cubital tunnel syndrome on left G56.22 Medical History Medical History Abnormal colonoscopy Actinic keratoses Hemiplegic migraine Hx of seizure disorder Per pt. states she see a neurologist saw Dr. Yates states it was brought on from a migraine. Per pt. states it was a 30 second LOC seizure w/ convulsions, loss of bladder function, Last seizure 09/26/2020. Currently managed on medication. Seasonal allergies Thyroiditis Medical History Comments:: Per pt. states her sister had a hard time waking her up as a child, states that she recieved too much and it was hospital error. Father had complications too Tobacco Smoking/Tobacco Use Status: Former Tobacco Use Alcohol Alcohol Intake: current Alcohol intake frequency: 0-2 drinks per day Alcohol type: beer, wine and hard liquor Substance Use Substance use: Never Substance use type: does not use Vital Signs and Lab Results Vital Signs Most Recent Vital Signs in EMR: Most Recent Vital Signs Temp Pulse Resp BP Pulse Ox 36.7 C 71 16 106/80 98 08/12/21 06:31 08/12/21 06:31 08/12/21 06:31 08/12/21 06:31 08/12/21 06:31 Point of Care Results Point of Care Results: POC- Test(urine) Negative 08/12/21 07:03 Lab Results Blood Type / Crossmatch: No Data to Display Complete Blood Count: No Data to Display Complete Metabolic Panel: No Data to Display Liver Function Panel: No Data to Display Coagulation Panel: No Data to Display Cardiac Panel: No Data to Display Arterial Blood Gas: No Data to Display Venous Blood Gas: No Data to Display Pancreas Panel: No Data to Display Thyroid Panel: No Data to Display Infectious Disease: No Data to Display Blood Cultures: No Data to Display Toxicology Panel: No Data to Display Panel: No Data to Display Anesthesia Assessment and Plan Anesthesia History Personal History: No History of Anesthesia Complications and Other Family History: Other Exercise Tolerance Exercise Tolerance: Metabolic Equivalents>4 Pertinent Negatives Pertinent Negatives: No Symptoms of GERD, No Major Pulmonary Symptoms or Complaints and No History of CVA/TIA Cardiac & Pulmonary Exam Cardiac Exam: Normal S1/S2 Heart Sounds Pulmonary Exam: Clear Bilateral Breath Sounds Implantable Cardiac Device Does patient have a Pacemaker or an ICD?: No Airway Exam Known Difficult Airway: No Mallampati Class: 2 Mouth Opening: Normal (> 3cm) Thyromental Distance: Greater than 3 cm Neck Range of Motion: Full ROM Neck Circumference: Normal Teeth Condition: Normal Dentition ASA Classification ASA Score: ASA 2 Emergency Case?: No NPO Status NPO Status: NPO Clears >2 hours, Solids >8 hours Status Status: Negative HCG Anesthesia Plan Resuscitation Status: Full Code Anesthesia Technique: General Anesthesia Airway Planned: Natural Airway Monitors Used: Standard Monitors
[2021-08-12] MEDS: ceFAZolin 2 GM/50 ML BAG IVPB (07:27)
[2021-08-12] MEDS: Lidocaine 1% Multi-Dose W/EPI 1/100,000 50 ML VIAL (07:39)
[2021-08-12] MEDS: Sodium Bicarbonate 50 MEQ/50 ML VIAL (07:40)
--- NOTE | 2021-08-12 07:41 | W.PM.OP ---
Date of service: 08/12/21 Time of Service: 06:42 Operative Note Operative Note DATE OF PROCEDURE: 08/12/21 PRE-OP DIAGNOSIS: Right Carpal Tunnel Syndrome POST-OP DIAGNOSIS: same PROCEDURE: Right Endoscopic Carpal Tunnel Release SURGEON: Sal Claudio ANESTHESIA TYPE: General:No Airway Refer to Anesthesia Record ESTIMATED BLOOD LOSS: 0 PATHOLOGY: none sent TOURNIQUET TIME: 63 COMPLICATIONS: None Patient was transported to: same day Patient's condition: stable Indications: I have seen Traci in clinic for symptoms of carpal tunnel syndrome. The numbness, tingling, and pain limited function. Clinical exam findings with nerve conduction tests confirmed the diagnosis of carpal tunnel syndrome. Nonoperative measures such as bracing, time, activity modifications had been tried but disability and pain persisted. I discussed carpal tunnel release with the patient. I reviewed the risks of the procedure to include, but not limited to, bleeding, infection, pain, stiffness, incomplete release, damage to nerves or vessels, persistent numbness, recurrence. Despite these risks, the patient elected to proceed. Findings: There was tightened carpal tunnel. This was dilated and released successfully with the endoscopic with increased space within the tunnel. The antebrachial fascia was released proximally freeing the median nerve at the wrist. Procedure Description: Traic was greeted in the preoperative holding area where the correct side was identified and marked. The consent was reviewed with the patient and signed. The history and physical was updated. All questions were answered. She was taken back to the operating room. The patient was placed into the supine position on the operating room table with the right arm on an arm board. A nonsterile tourniquet was placed high onto the arm. All bony prominences were well padded. Prophylactic antibiotics in the form of Cefazolin were administered. The right arm was then prepped with Chloraprep and draped in a standard fashion with stockinette and extremity drape. A timeout to confirm correct identity, side and site, procedure, allergies, anesthesia, and medical concerns was performed. The surgical site was marked in the volar wrist creases in line with the radial border of the fourth ray. This area was anesthetized with approximately 6cc of 1% Lidocaine. The limb was then exsanguinated with an Esmarch. The skin was incised with a 15 blade, approximately 1cm. The skin only was cut and the deeper tissue was dissected bluntly with a tenotomy scissor, avoiding passing nerve and venous structures. The fascia was penetrated and opened bluntly. A two-prong skin hook was placed under this proximal fascial edge. A series of hamate finders were used to identify and dilate the carpal tunnel. Synovial elevator was used to free synovial attachments to the underside of the transverse carpal ligament. My thumb was kept in the palm to flower the distal extent of the carpal tunnel and correctly position the hand. The Microaire endoscope was inserted without difficulty and without resistance. Excellent visualization showed horizontally running fibers of the transverse carpal ligament (TCL). The distal extent of the TCL was visualized and the end of the scope palpated with the thumb. The blade was elevated and withdrawn from distal to proximal. The TCL was split into two flaps. The endoscope was reinserted to confirm complete release and any remnant ligament was incised. The scope was withdrawn and the proximal aspect of the carpal tunnel was grossly inspected and appeared release with the median nerve visible. The antebrachial fascia at the level of the wrist was then freed from the overlying skin and then the underlying median nerve with blunt dissection. This was transected longitudinally for about 3cm proximal to the wrist incision. The wound was then irrigated with easy flow of irrigant distally and proximally. The incision was closed with a single 4-0 Nylon suture. The wound was dressed with Xeroform, Gauze, Kerlix and Heri. The tourniquet was deflated with the initial dressing and held with some pressure. Blood flow returned easily to all digits with capillary refill less than 2 seconds. The patient tolerated the procedure well and was returned to the Same Day Surgery area in a stable condition suffering no known complication.
[2021-08-12 07:55] VITALS: BP 104/64; PULSE 68; RESP 16; TEMP 36.4; O2SAT 96
--- NOTE | 2021-08-12 07:59 | W.ANESPOSTOP ---
Postoperative Evaluation Date, Time and Location Date Performed: 08/12/21 Time Performed: 07:55 Patient Location: Day Surgery Unit Vital Signs Most Recent Imported Vital Signs: Most Recent Vital Signs Temp Pulse Resp BP Pulse Ox 36.4 C L 68 16 104/64 96 08/12/21 07:55 08/12/21 07:55 08/12/21 07:55 08/12/21 07:55 08/12/21 07:55 Pain Score Most Recent Pain Score: Most Recent Pain Score Pain Level 0 08/12/21 07:55 Assessment Mental Status: Awake (Alert & Oriented to Patient Baseline) Airway and Respiratory Function: Patent airway with normal (patient baseline) respiratory exam Cardiovascular Function: Hemodynamically Stable Hydration Status: Adequately Hydrated Nausea & Vomiting: No Nausea or Vomiting Pain: Pt. Denies Any Pain Peripheral Nerve Block: Patient did not receive a nerve block
[2021-08-12 08:15] VITALS: BP 119/52; PULSE 64; RESP 16; TEMP 36.5; O2SAT 93
== END 2021-08-12 08:44 | disposition home or self-care (01) ==
PROVIDERS: PCP Physician Assistant; Visit Provider Student in an Organized Health Care Education/Training Program
PROC: 01N54ZZ Release Median Nerve, Percutaneous Endoscopic Approach (ICD-10-PCS; CPT 29848; principal; 2021-08-12 07:30)
DX: G56.01 Carpal tunnel syndrome, right upper limb (principal); E78.5 Hyperlipidemia, unspecified; D25.9 Leiomyoma of uterus, unspecified; M10.9 Gout, unspecified
CPT/HCPCS: 29848; 81025; J0690

== ENCOUNTER → 2021-08-26 02:48 | Outpatient (CLI) | payer MEDICAID, SELFPAY ==
--- NOTE | 2021-08-26 14:00 | DI.US_ITS ---
Exam(s) US THYROID EXAM: US THYROID CLINICAL HISTORY: MULTINODULAR THYROID GOITER, E04.2, F/U NODULES TECHNIQUE: Ultrasound performed using standard protocol. COMPARISON: US US CAROTID from 01/12/2021 FINDINGS: Thyroid ultrasound was performed according to the usual protocol. Right lobe measures 46 x 13 x 12 m illimeters and left lobe measures 39 x 12 x 13 millimeters. The isthmus is 2 millimeters in thicknes s. Thyroid parenchyma is fairly homogeneous in echotexture. A previously described 9 millimeter nodule seen in left thyroid lobe now measures about 5 millimeters in diameter. This is a cysts solid hypoec hoic lesion which is wider than tall and has smooth margins. This appears to have some punctate echo genic foci. No other significant nodule seen. IMPRESSION: Decreased size of previously described left thyroid nodule. This is a TR 5 nodule by TI-RADS classif ication and measures 5 millimeters in diameter. Follow-up ultrasound recommended in 12 months. DATA REPOSITORY:
== END ==
PROVIDERS: PCP Physician Assistant; Visit Provider Physician Assistant
DX: E04.2 Nontoxic multinodular goiter (principal)
CPT/HCPCS: 76536

== ENCOUNTER → 2022-02-03 00:57 | Outpatient (CLI) | payer MEDICAID, SELFPAY ==
--- NOTE | 2022-02-03 | DI.US_ITS ---
Exam(s) US CAROTID EXAM: US CAROTID CLINICAL HISTORY: CAROTID ARTERY STENOSIS, LATIA, I65.23. TECHNIQUE: Ultrasound carotids performed using grayscale, color-flow, and spectral Doppler imaging. COMPARISON: US US CAROTID from 01/12/2021 FINDINGS: RIGHT CAROTID ARTERY: Plaque: Minimal. Velocity elevation: Mild right ICA velocity elevation. LEFT CAROTID ARTERY: Plaque: Minimal. Velocity elevation: None. VERTEBRAL ARTERIES: Antegrade flow. Measurements: R Bulb: 107.7 cm/s PS / 46.9 cm/s ED R CCA: 120.2 cm/s PS / 45.1 cm/s ED R ECA: 145.8 cm/s PS / 61.3 cm/s ED R ICA Prox: 134.2 cm/s PS / 44.9 cm/s ED R ICA Mid: 129.8 cm/s PS / 51.4 cm/s ED R ICA Distal: 136.3 cm/s PS /51.4 cm/s ED R Vert: 71 cm/s PS / 25.3 cm/s ED R SVR: 1.1 R DVR: 1.1 L Bulb: 90.2 cm/s PS / 34.5 cm/s ED L CCA: PS / 39.3 cm/s ED L ECA: 103.7 cm/s PS / 42.5 cm/s ED L ICA Prox: 95 cm/s PS / 31.8 cm/s ED L ICA Mid: 83.7 cm/s PS / 42.2 cm/s ED L ICA Distal: 70.7 cm/s PS / 22.8 cm/s ED L Vert: 69.7 cm/s PS / 27.7 cm/s ED L SVR: 0.8 L DVR: 0.8 IMPRESSION: 1. No hemodynamically significant velocity elevation on the left. 2. Mild velocity elevation in the right ICA resulting in 50-69 percent narrowing. Criteria for Carotid Stenosis: Normal: ICA PSV <125 cm/s no plaque or intimal thickening is visible. <50% stenosis: ICA PSV <125 cm/s and plaque or intimal thickening is visible. 50-69% stenosis: ICA PSV is 125-250 cm/s and plaque is visible. >70% stenosis to near occlusion: ICA PSV >250 cm/s with visible plaque and luminal narrowing. DATA REPOSITORY:
== END ==
PROVIDERS: PCP Physician Assistant; Visit Provider Physician Assistant
DX: I65.23 Occlusion and stenosis of bilateral carotid arteries (principal)
CPT/HCPCS: 93880

== ENCOUNTER 2022-05-18 17:57 | Emergency (ER) | payer MEDICAID, SELFPAY ==
[2022-05-18 18:03] VITALS: BP 129/73; PULSE 81; RESP 16; TEMP 36.3; O2SAT 98
[2022-05-18 19:12] LABS: Abs Immature Grans 0.02 10^3/uL (0.0-0.06); Absolute Basophil Count 0.06 10^3/uL (0.0-0.2); Absolute Eosinophil Count 0.29 10^3/uL (0.0-0.7); Absolute Neutrophil Count 4.97 10^3/uL (1.2-6.7); Basophils % 0.6; Eosinophils % 3.1; HGB 11.2 g/dL (11.2-15.7); Immature Grans % 0.2; Lymphocytes % 33.5; MCH 31.8 pg (27.0-33.0); MCHC 33.9 % (32.0-36.0); MCV 94 fL (80-95); MPV 9.5 fL (8.0-11.0); Monocytes % 8.7; Neutrophils % 53.9; Platelet Count 275 10^3/uL (130-400); RBC 3.52 10^6/uL (3.93-5.22); RDW 12.6 % (11.7-14.6); RDW-SD 43.3 fL; WBC 9.24 10^3/uL (4.4-10.8)
[2022-05-18 19:24] LABS: INR 0.9 (0.9-1.1); PTT Activated 24.3 sec (21.5-31.9); Prothrombin Time 9.3 sec (9.3-11.0)
[2022-05-18 19:24] LABS: Clarity Turbid (Clear); Specific Gravity <= 1.005 (1.005-1.025)
[2022-05-18 19:33] LABS: ALT 28 U/L (14-59); AST 25 U/L (15-37); Albumin 3.8 g/dL (3.4-5.0); Alkaline Phosphatase 58 U/L (46-116); Anion Gap 6.8 mmol/L (3-11); BUN 16 mg/dL (7-18); Bilirubin, Total 0.2 mg/dL (0.2-1.0); CO2 29.2 mmol/L (21.0-32.0); CREATININE 1.1 mg/dL (0.55-1.02); Calcium 8.7 mg/dL (8.5-10.1); Chloride 107 mmol/L (98-107); Estimated GFR 59.34 (mL/min/1.73m2); Glucose 94 mg/dL (74-106); Potassium 4.3 mmol/L (3.5-5.1); Sodium 143 mmol/L (136-145); Total Protein 6.9 g/dL (6.4-8.2)
--- NOTE | 2022-05-18 19:36 | ED.GENADUL_ITS ---
Discharge Plan Disposition Patient Disposition: Home Condition: Stable Discharge Details Clinical Impression: Vaginal bleeding Primary Care Provider: Celeste Barcenas ED Provider: Everardo Baxter Home Meds and New Rx's Prescriptions: New medroxyprogesterone [Provera] 5 mg tablet 5 mg PO BID 5 Days Qty: 10 0RF Rx Instructions: May increase to 10 mg twice daily in 2 days if symptoms or not improving Continued turmeric-turmeric ext-pepper 500-3 mg capsule 1 cap PO DAILY sumatriptan succinate [Imitrex] 50 mg tablet See Rx Instructions PO .COMPLEX Rx Instructions: take 1 tab at onset of headache; if no relief may repeat 1 tab after at least 2 hrs; max = 4 tabs/24 hr PO levetiracetam 500 mg tablet 500 mg PO BID aspirin 81 mg tablet,delayed release (DR/EC) 81 mg PO DAILY rosuvastatin 20 mg tablet 10 mg PO DAILY multivitamin [Daily Multi-Vitamin] 1 EACH tablet 1 tab PO DAILY magnesium 200 MG tablet 1 tab PO DAILY cholecalciferol (vitamin D3) [Vitamin D3] 2,000 UNIT capsule 1 tab PO DAILY Thrivite Rx 29 mg iron- 1 mg Tablet 1 tab PO DAILY acetaminophen 500 mg tablet 500 mg PO Q6H PRN PRN (Reason: pain) Qty: 40 3RF hydrocodone-acetaminophen 5-325 mg tablet 1 tab PO Q6H PRN (Reason: pain) Qty: 3 0RF Patient Comments: RX finished ibuprofen 600 mg tablet 600 mg PO TID PRN (Reason: pain) Qty: 30 3RF Discharge Instructions Instructions: Abnormal (Dysfunctional) Uterine Bleeding (ED) Additional Instructions: Provera as directed. Plenty of fluids to avoid dehydration or volume depletion. Please watch for new or worsening symptoms and return to the ER for any concerns. Lastly, follow-up with CABLE TECHNICIAN as already scheduled on Tuesday. Discharge Data Discharge Date/Time-TO BE ENTERED AT DEPARTURE: 05/18/22 21:01 Medical Decision Making 57-year-old female perimenopausal, reports 5-day history of increasing vaginal bleeding otherwise asymptomatic. Clinically she appears well, nontoxic, neurologically intact. Hemodynamically stable. Plan to obtain routine screening laboratory values including coags, , and plan to discuss with women's wellness. Laboratory values are unremarkable for any obvious emergent process. No signs of significant anemia. She shows no evidence of decompensation and remains stable. Patient reports that they have previously discussed hysterectomy but she opted not to go this route. We did discuss that outpatient ultrasound may be indicated for further evaluation as well. She was witnessed ambulating to the restroom steadily. Case discussed with Dr. Holland, CABLE TECHNICIAN. Recommends initiating progesterone 5 mg twice daily, patient may increase to 10 mg twice daily in the next 48 hours if symptoms are not improving. She is actually in the clinic on Tuesday we will likely personally see the patient. This plan was relayed to the patient. She is comfortable. First dose of progesterone given now and we will also provide 60 IM Toradol. Standard discharge and return precautions were provided. Patient understands, is agreeable to this plan, and has no additional questions or concerns upon discharge. This documentation was generated using [employer] system, please disregard any oddities of phrase or misspellings. Medical Records Medical records reviewed: Yes I reviewed the patient's medical records. Lab Data Lab results reviewed: Yes I reviewed the patient's lab results. Labs: 05/18/22 19:09 Urine - Reflex from Ua Urine Culture - Preliminary Gram Positive Sofiya,Mixed Laboratory Tests Range/Units 05/18/22 05/18/22 05/18/22 19:04 19:04 19:04 WBC (4.4-10.8) 10^3/uL 9.24 RBC (3.93-5.22) 10^6/uL 3.52 L Hgb (11.2-15.7) g/dL 11.2 Hct (36.0-46.0) % 33.0 L MCV (80-95) fL 94 MCH (27.0-33.0) pg 31.8 MCHC (32.0-36.0) % 33.9 RDW (11.7-14.6) % 12.6 Plt Count (130-400) 10^3/uL 275 MPV (8.0-11.0) fL 9.5 Immature Gran % 0.2 Neutrophils % 53.9 Lymphocytes % 33.5 Monocytes % 8.7 Eosinophils % 3.1 Basophils % 0.6 Nucleated RBC % (0.0-0.3) % 0.0 Absolute Neutrophils (1.2-6.7) 10^3/uL 4.97 Absolute Lymphocytes (1.2-3.4) 10^3/uL 3.10 Absolute Monocytes (0.1-0.8) 10^3/uL 0.80 Absolute Eosinophils (0.0-0.7) 10^3/uL 0.29 Absolute Basophils (0.0-0.2) 10^3/uL 0.06 PT (9.3-11.0) sec 9.3 INR (0.9-1.1) 0.9 APTT (21.5-31.9) sec 24.3 Sodium (136-145) mmol/L 143 Potassium (3.5-5.1) mmol/L 4.3 Chloride (98-107) mmol/L 107 Carbon Dioxide (21.0-32.0) mmol/L 29.2 Anion Gap (3-11) mmol/L 6.8 BUN (7-18) mg/dL 16 Creatinine (0.55-1.02) mg/dL 1.1 H Est GFR (CKD-EPI 2020) (mL/min/1.73m2) 59.34 Glucose (74-106) mg/dL 94 Calcium (8.5-10.1) mg/dL 8.7 Total Bilirubin (0.2-1.0) mg/dL 0.2 AST (15-37) U/L 25 ALT (14-59) U/L 28 Alkaline Phosphatase (46-116) U/L 58 Total Protein (6.4-8.2) g/dL 6.9 Albumin (3.4-5.0) g/dL 3.8 Serum HCG, Qual Urine Color (Yellow) Urine Clarity (Clear) Urine pH (5-8) Ur Specific Alto (1.005-1.025) Urine Protein (Negative) mg/dL Urine Ketones (Negative) mg/dL Urine Blood (Negative) Urine Nitrite (Negative) Urine Bilirubin (Negative) Urine Urobilinogen (Up to 0.2) mg/dL Ur Leukocyte Esterase (Negative) Urine RBC (0-2) HPF Urine WBC (0-5) HPF Ur Epithelial Cells (Negative) HPF Urine Crystals (Negative) HPF Urine Bacteria (Negative) HPF Urine Casts (Negative) LPF Urine Mucus (Negative) Urine Other (Negative) Ur Culture Indicated? Urine Glucose (Negative) mg/dL Range/Units 05/18/22 05/18/22 19:04 19:09 WBC (4.4-10.8) 10^3/uL RBC (3.93-5.22) 10^6/uL Hgb (11.2-15.7) g/dL Hct (36.0-46.0) % MCV (80-95) fL MCH (27.0-33.0) pg MCHC (32.0-36.0) % RDW (11.7-14.6) % Plt Count (130-400) 10^3/uL MPV (8.0-11.0) fL Immature Gran % Neutrophils % Lymphocytes % Monocytes % Eosinophils % Basophils % Nucleated RBC % (0.0-0.3) % Absolute Neutrophils (1.2-6.7) 10^3/uL Absolute Lymphocytes (1.2-3.4) 10^3/uL Absolute Monocytes (0.1-0.8) 10^3/uL Absolute Eosinophils (0.0-0.7) 10^3/uL Absolute Basophils (0.0-0.2) 10^3/uL PT (9.3-11.0) sec INR (0.9-1.1) APTT (21.5-31.9) sec Sodium (136-145) mmol/L Potassium (3.5-5.1) mmol/L Chloride (98-107) mmol/L Carbon Dioxide (21.0-32.0) mmol/L Anion Gap (3-11) mmol/L BUN (7-18) mg/dL Creatinine (0.55-1.02) mg/dL Est GFR (CKD-EPI 2020) (mL/min/1.73m2) Glucose (74-106) mg/dL Calcium (8.5-10.1) mg/dL Total Bilirubin (0.2-1.0) mg/dL AST (15-37) U/L ALT (14-59) U/L Alkaline Phosphatase (46-116) U/L Total Protein (6.4-8.2) g/dL Albumin (3.4-5.0) g/dL Serum HCG, Qual Negative Urine Color (Yellow) Red Urine Clarity (Clear) Turbid Urine pH (5-8) > 9.0 H Ur Specific Alto (1.005-1.025) <= 1.005 Urine Protein (Negative) mg/dL Color Interference Urine Ketones (Negative) mg/dL Color Interference Urine Blood (Negative) Color Interference Urine Nitrite (Negative) Color Interference Urine Bilirubin (Negative) Color Interference Urine Urobilinogen (Up to 0.2) mg/dL Color Interference Ur Leukocyte Esterase (Negative) Color Interference Urine RBC (0-2) HPF Color Interference Urine WBC (0-5) HPF Color Interference Ur Epithelial Cells (Negative) HPF Color Interference Urine Crystals (Negative) HPF Color Interference Urine Bacteria (Negative) HPF Color Interference Urine Casts (Negative) LPF Color Interference Urine Mucus (Negative) Color Interference Urine Other (Negative) Color Interference Ur Culture Indicated? Yes Urine Glucose (Negative) mg/dL Color Interference HPI General Mode of arrival: ambulatory . Date/Time Provider Initiated Documentation: 05/18/22 18:27 . Limitations to Documentation: no limitations . Information obtained by: patient . HPI Narrative: This is a 57-year-old female who is perimenopausal, history of uterine fibroids, past with history of migraines, seizure disorder, thyroiditis, presenting for heavy vaginal bleeding over the past 5 days, worsening in nature. Patient states that she is perimenopausal and previously had not had a period for 4-5 months, had a small. 1 month ago, starting 5 days ago had a small amount of bleeding but today he is bleeding more heavily, passing small clots and changing her pad every couple of hours. She denies any feeling of lightheadedness, dizziness, chest pain, palpitations, baseline easy bruising or bleeding. She is scheduled to be seen by women's wellness on Tuesday. Patient states that previously she had taken progesterone for this, had contacted her outpatient provider who recommended taking this medication but she realized she no longer has any. She denies any petechiae like rash. Patient denies any fever, chest pain, abdominal pain, nausea or vomiting. Denies any other vaginal discharge. Reports mild suprapubic pressure. Related Data Home Medications Medication Instructions Recorded Confirmed cholecalciferol (vitamin D3) 50 1 tab PO DAILY 03/20/13 05/18/22 mcg (2,000 unit) capsule (Vitamin D3) magnesium 200 mg tablet 1 tab PO DAILY 03/20/13 05/18/22 multivitamin (Daily Multi-Vitamin 1 tab PO DAILY 03/20/13 05/18/22 tablet) sumatriptan succinate 50 mg tablet See Rx Instructions PO .COMPLEX 03/05/20 05/18/22 (Imitrex) vitamin 1 tab PO DAILY 04/17/20 05/18/22 no.76-iron,carbonyl 29 mg iron-folic acid 1 mg tablet (Thrivite Rx) aspirin 81 mg tablet,delayed 81 mg PO DAILY 05/27/21 05/18/22 release levetiracetam 500 mg tablet 500 mg PO BID 05/27/21 05/18/22 rosuvastatin 20 mg tablet 10 mg PO DAILY 05/27/21 05/18/22 turmeric 500 mg-black pepper 1 cap PO DAILY 07/27/21 05/18/22 extract 3 mg capsule acetaminophen 500 mg tablet 500 mg PO Q6H PRN PRN pain #40 tabs 08/12/21 05/18/22 hydrocodone 5 mg-acetaminophen 325 1 tab PO Q6H PRN pain #3 tabs 08/12/21 08/22/21 mg tablet ibuprofen 600 mg tablet 600 mg PO TID PRN pain #30 tabs 08/12/21 05/18/22 medroxyprogesterone 5 mg tablet 5 mg PO BID 5 days #10 tabs 05/18/22 (Provera) Previous Rx's Medication Instructions Recorded acetaminophen 500 mg tablet 500 mg PO Q6H PRN PRN pain #40 tabs 08/12/21 hydrocodone 5 mg-acetaminophen 325 1 tab PO Q6H PRN pain #3 tabs 08/12/21 mg tablet ibuprofen 600 mg tablet 600 mg PO TID PRN pain #30 tabs 08/12/21 medroxyprogesterone 5 mg tablet 5 mg PO BID 5 days #10 tabs 05/18/22 (Provera) Allergies Allergy/AdvReac Type Severity Reaction Status Date / Time amoxicillin Allergy Intermediate none noted Verified 05/18/22 18:10 on referral mold Allergy Intermediate Verified 05/18/22 18:10 Penicillins Allergy Mild Skin Rash Verified 05/18/22 18:10 General Stated Complaint: CABLE TECHNICIAN ANGE: 5 Review of Systems Constitutional Constitutional: Denies fever(s), Denies headache(s) and Denies weakness Eyes Eyes: Denies change in vision ENT Ears, Nose, Mouth, and Throat: Denies dizziness and Denies headache(s) Cardiovascular Cardiovascular: Denies chest pain and Denies dyspnea Respiratory Respiratory: Denies cough and Denies dyspnea Gastrointestinal Gastrointestinal: Denies abdominal pain, Denies nausea and Denies vomiting Genitourinary Genitourinary: Reports abnormal vaginal bleeding, Denies dysuria and Denies vaginal discharge Musculoskeletal Musculoskeletal: Denies back pain Integumentary/Breasts Skin/Breast: Denies rash Neurologic Neurologic: Denies dizziness, Denies headache(s) and Denies weakness Hematologic/Lymphatic Hematologic/Lymphatic: Denies easy bleeding and Denies easy bruising PFSH All Active Problems Vaginal bleeding (Acute) Left carpal tunnel syndrome (Acute) History of exploratory laparotomy (Acute) Exploratory laparotomy for ruptured ectopic , age 21 Thyroid dysfunction (Acute) Uterine fibroids affecting (Acute) Abnormal uterine bleeding (Acute) Uterine fibroid (Acute) Hyperplastic colon polyp (Acute) New onset seizure (Acute) History of atypical migraine (Acute) Hyperlipidemia (Acute) Bilateral carotid artery stenosis (Acute) Prediabetes (Acute) Rosacea (Acute) Gout (Chronic) Cubital tunnel syndrome on left (Acute) Medical History Abnormal colonoscopy Actinic keratoses Hemiplegic migraine Hx of seizure disorder Per pt. states she see a neurologist saw Dr. Yates states it was brought on from a migraine. Per pt. states it was a 30 second LOC seizure w/ convulsions, loss of bladder function, Last seizure 09/26/2020. Currently managed on medication. Seasonal allergies Thyroiditis Surgical History Right carpal tunnel syndrome S/P R ECTR: 08/12/2021 Social History Smoking/Tobacco Use Status: Former Tobacco Use Quit Date: 03/28/15 Smoking risk assessment performed?: Yes Alcohol Intake: current Alcohol Intake frequency: 0-2 drinks per day Alcohol type: beer, wine and hard liquor Drug use: Never Substance use type: does not use Do you feel safe at home: Yes Do you feel safe in your relationship?: Yes Exam Const General: cooperative, healthy appearing, comfortable and no acute distress Orientation: alert and awake [facility] Head: normal to inspection, normocephalic and atraumatic Face and sinus: normal facial exam Mouth: moist mucous membranes Eyes General: appearance normal, both eyes and all related structures Conjunctivae: conjunctivae normal Neck Neck: normal visual inspection, full ROM, no meningeal signs, trachea midline and supple Resp Effort & Inspection: normal respiratory effort and able to speak in complete sentences Auscultation: clear to auscultation bilaterally Cardio Rate: regular rate Rhythm: regular rhythm GI Palpation: soft, not firm, no guarding, no pulsatile masses and nontender General: deferred Back/Spine/Pelvis Back: no CVA tenderness and No back tenderness Skin General skin exam: no rashes or lesions noted Neuro General: patient alert, patient awake, moves all extremities and no focal motor deficits Sensory Exam: no sensory deficits noted Psych Appearance: grossly normal Mental Status: mental status grossly normal Course Vital Signs Vital signs: Vital Signs Temperature 36.3 C L 05/18/22 18:03 Pulse 81 05/18/22 18:03 Respiratory Rate 16 05/18/22 18:03 Blood Pressure 129/73 05/18/22 18:03 Pulse Oximetry 98 05/18/22 18:03 Temperature 36.3 C L 05/18/22 18:03 Temperature Source Tympanic 05/18/22 18:03 Pulse 81 05/18/22 18:03 Respiratory Rate 16 05/18/22 18:03 Respiratory Effort Normal 05/18/22 18:08 Blood Pressure 129/73 05/18/22 18:03 Blood Pressure Position Sitting 05/18/22 18:03 Pulse Oximetry 98 05/18/22 18:03 Oxygen Delivery Method Room Air 05/18/22 18:03 Oxygen Flow Rate 0 05/18/22 18:03 Pain Level 0 05/18/22 18:09 Lab/Test Results Lab/Test Results: Laboratory Tests Range/Units 05/18/22 05/18/22 05/18/22 19:04 19:04 19:04 WBC (4.4-10.8) 10^3/uL 9.24 RBC (3.93-5.22) 10^6/uL 3.52 L Hgb (11.2-15.7) g/dL 11.2 Hct (36.0-46.0) % 33.0 L MCV (80-95) fL 94 MCH (27.0-33.0) pg 31.8 MCHC (32.0-36.0) % 33.9 RDW (11.7-14.6) % 12.6 Plt Count (130-400) 10^3/uL 275 MPV (8.0-11.0) fL 9.5 Immature Gran % 0.2 Neutrophils % 53.9 Lymphocytes % 33.5 Monocytes % 8.7 Eosinophils % 3.1 Basophils % 0.6 Nucleated RBC % (0.0-0.3) % 0.0 Absolute Neutrophils (1.2-6.7) 10^3/uL 4.97 Absolute Lymphocytes (1.2-3.4) 10^3/uL 3.10 Absolute Monocytes (0.1-0.8) 10^3/uL 0.80 Absolute Eosinophils (0.0-0.7) 10^3/uL 0.29 Absolute Basophils (0.0-0.2) 10^3/uL 0.06 PT (9.3-11.0) sec 9.3 INR (0.9-1.1) 0.9 APTT (21.5-31.9) sec 24.3 Sodium (136-145) mmol/L 143 Potassium (3.5-5.1) mmol/L 4.3 Chloride (98-107) mmol/L 107 Carbon Dioxide (21.0-32.0) mmol/L 29.2 Anion Gap (3-11) mmol/L 6.8 BUN (7-18) mg/dL 16 Creatinine (0.55-1.02) mg/dL 1.1 H Est GFR (CKD-EPI 2020) (mL/min/1.73m2) 59.34 Glucose (74-106) mg/dL 94 Calcium (8.5-10.1) mg/dL 8.7 Total Bilirubin (0.2-1.0) mg/dL 0.2 AST (15-37) U/L 25 ALT (14-59) U/L 28 Alkaline Phosphatase (46-116) U/L 58 Total Protein (6.4-8.2) g/dL 6.9 Albumin (3.4-5.0) g/dL 3.8 PAWSS Have you Been Recently Intoxicated or Drunk Within the Last 30 days?: No Have you Ever Experienced Previous Episodes of Alcohol Withdrawal?: No Have you ever Experienced Withdrawal Seizures?: No Have you ever Experienced Delirium Tremens(DT)s?: No Have you ever undergone Alcohol Rehabilitation Treatment (i.e, inpt ot outpatient treatment programs)?: No Have you ever Experienced Blackouts?: No Have you ever Combined Alcohol with other Downers within the last 90 days?: No Have you ever Combined Alcohol with any other Substance of Abuse during the last 90 days?: No Result: 0
[2022-05-18 19:49] LABS: Bilirubin Color Interference (Negative); Blood Color Interference (Negative); Glucose Color Interference mg/dL (Negative); Ketones Color Interference mg/dL (Negative); Leukocyte Esterase Color Interference (Negative); Nitrite Color Interference (Negative); Urobilinogen Color Interference mg/dL (Up to 0.2)
[2022-05-18 19:50] LABS: pH > 9.0 (5-8)
[2022-05-18 19:52] LABS: HCG Qual (Serum) Negative
[2022-05-18 19:52] LABS: Bacteria Color Interference HPF (Negative); C & S Indicated? Yes; Casts Color Interference LPF (Negative); Crystals Color Interference HPF (Negative); Epithelial Cells Color Interference HPF (Negative); Mucus Color Interference (Negative); Other Cells Color Interference (Negative); RBC Color Interference HPF (0-2); WBC Color Interference HPF (0-5)
[2022-05-18] MEDS: medroxyPROGESTERone 5 MG TAB PO (20:55)
[2022-05-18] MEDS: Ketorolac 60 MG/2 ML VIAL IM (20:55)
[2022-05-18 21:00] VITALS: BP 148/85; PULSE 72; RESP 20; TEMP 36.4; O2SAT 96
== END 2022-05-18 21:01 | disposition home or self-care (01) ==
PROVIDERS: Emergency Provider Physician Assistant; PCP Physician Assistant
DX: N93.9 Abnormal uterine and vaginal bleeding, unspecified (principal)
CPT/HCPCS: 80053; 96372; 99283; 81003; 81015; 84703; 85025; 85610; 85730; 87086; 99284; J1885

== ENCOUNTER 2022-06-24 01:06 | Outpatient (CLI) | payer MEDICAID, SELFPAY ==
--- NOTE | 2022-06-24 08:15 | DI.US_ITS ---
Exam(s) US PELVIS TRANSVAGINAL EXAM: US PELVIS TRANSVAGINAL CLINICAL HISTORY: menorrhagia,uterine fibroid,dysfunctional uterine bleeding,d25.9,n93.8 TECHNIQUE: Transabdominal and transvaginal imaging was performed using standard protocol. COMPARISON: US US PELVIS TRANSVAGINAL from 01/31/2020 FINDINGS: UTERUS: Anteverted. 10.9 x 6.4 x 7.7 cm Endometrium: 25 mm, heterogeneous. Myometrium: Heterogeneous with small fibroids. Cervix: Nabothian cyst. OVARIES: Right: Cyst or mass: None. Left: Cyst or mass: None. DOPPLER: Color: Symmetric and uniform flow to both ovaries. No hyperemia. CUL-DE-SAC: Free fluid: None. IMPRESSION: 1. Small uterine fibroids. Thickened heterogeneous endometrium. 2. Unremarkable bilateral ovaries. DATA REPOSITORY:
== END 2022-06-24 01:26 ==
LOC: DI 01:06
PROVIDERS: PCP Physician Assistant; Visit Provider Advanced Practice Midwife
DX: N93.8 Other specified abnormal uterine and vaginal bleeding (principal); D25.9 Leiomyoma of uterus, unspecified; N92.0 Excessive and frequent menstruation with regular cycle; R93.89 Abnormal findings on diagnostic imaging of other specified body structures
CPT/HCPCS: 76830; 76856

== ENCOUNTER 2022-06-24 15:27 | Outpatient (REF) | payer MEDICAID, SELFPAY ==
--- NOTE | 2022-06-24 15:00 | ENDOMET_PTH ---
PATIENT: Traci Santana LOC: [facility] U#:[id number] AGE/SX: 57/F ROOM: RE06/24/[address]: Adelina Holland DO : 1965 BED: DIS: 06/24/2022 SPEC #: [id number] RECD: 06/24/22 18:29 STATUS: CHARLES REQ #: [id number] AFSHIN: 06/24/22 15:[address]: Adelina Holland DEPT: Surgical Specimen RECD BY: Arielle Rapp ENTERED: 06/24/22 18:30 SP TYPE: Endomet OTHR DR: Celeste Barcenas Tissues: 1 - ENDOMETRIUM BX/NINA Procedures: GROSS AND MICRO LEVEL 4 Comments: [id number]
== END 2022-06-24 15:28 | disposition home or self-care (01) ==
LOC: LBN 15:27
PROVIDERS: PCP Physician Assistant; Visit Provider Obstetrics & Gynecology
DX: N85.8 Other specified noninflammatory disorders of uterus (principal); T38.5X5A Adverse effect of other estrogens and progestogens, initial encounter; N93.8 Other specified abnormal uterine and vaginal bleeding
CPT/HCPCS: 88305

== ENCOUNTER 2022-08-16 18:49 | Outpatient (REF) | payer MEDICAID, SELFPAY ==
[2022-08-16 19:44] LABS: ALT 26 U/L (14-59); AST 26 U/L (15-37); Albumin 3.5 g/dL (3.4-5.0); Alkaline Phosphatase 34 U/L (46-116); Anion Gap 5.1 mmol/L (3-11); BUN 13 mg/dL (7-18); Bilirubin, Total 0.2 mg/dL (0.2-1.0); CO2 25.9 mmol/L (21.0-32.0); CREATININE 0.8 mg/dL (0.55-1.02); Calcium 8.6 mg/dL (8.5-10.1); Calculated LDL 116 mg/dL (<100); Chloride 105 mmol/L (98-107); Cholesterol 165 mg/dL (<200); Estimated GFR 86.96 (mL/min/1.73m2); Glucose 101 mg/dL (74-106); HDL Cholesterol 33 mg/dL (40-60); Potassium 4.9 mmol/L (3.5-5.1); Sodium 136 mmol/L (136-145); TSH 3.93 uIU/mL (0.36-3.74); Total Protein 7.8 g/dL (6.4-8.2); Triglyceride 84 mg/dL (<150)
[2022-08-17 11:37] LABS: Hemoglobin A1C 5.4 % (<5.7)
== END 2022-08-16 18:50 | disposition home or self-care (01) ==
LOC: NCHCN 18:49
PROVIDERS: PCP Physician Assistant; Visit Provider Physician Assistant
DX: E78.5 Hyperlipidemia, unspecified (principal); R73.03 Prediabetes; E03.9 Hypothyroidism, unspecified
CPT/HCPCS: 80053; 80061; 83036; 84443

== ENCOUNTER → 2022-11-16 01:03 | Outpatient (CLI) | payer MEDICAID, SELFPAY ==
--- NOTE | 2022-11-16 | DI.US_ITS ---
Exam(s) US THYROID EXAM: US THYROID CLINICAL HISTORY: MULTINODULAR THYROID GOITER, E04.2, THYROID NODULE, E04.1, 12 MONTH F/U. TECHNIQUE: Ultrasound thyroid performed using standard protocol. COMPARISON: US US THYROID from 08/26/2021 FINDINGS: Both thyroid lobes as well as the isthmus again exhibit normal size and there is a solitary nodule in each lobe again noted. RIGHT THYROID LOBE: Measures 1.0 cm AP x 1.0 cm wide x 3.5 cm craniocaudal With respect of the solitary nodule in the right lobe; Size: This nodule measures 0.3 x 0 point 3 x 0.3 cm Composition: Solid-2 points Echogenicity: Hypoechoic-2 points Shape: Not taller than wider in the transverse plane-0 points Margin: Smooth- 0 points Echogenic Foci: None-0 points Total Points for this nodule: 4 ACR Ti-Rads Category: TR4 This nodule does not require biopsy at this time because it measures less than 1.5 cm. There are no new right lobe nodules. ISTHMUS: Normal thickness. There are no nodules in the isthmus. LEFT THYROID LOBE: Measures 1.0 cm AP x 1.3 wide x 3.0 cm craniocaudal Again noted is a solitary left lobe nodule. With respect to this nodule; This nodule measures 0.4 x 0.3 x 0.4 cm Composition: Solid-2 points Echogenicity: Hypoechoic-2 points Shape: Not taller than wider in the transverse plane-0 points Margin: Wap-[id number]-3 points Echogenic Foci: None-0 points Total points for this nodule: 4 ACR Ti-Rads Category: 4. This nodule does not require biopsy as it measures less than 1.5 cm. There are no new additional nodules in the left lobe. LYMPH NODES: There is no significant adenopathy. IMPRESSION: 1. Relatively stable unchanged appearance of the to thyroid nodules, 1 in each lobe, the solid nodule s measuring less than 1 cm bilaterally. Both are TR4 no nodules but do not qualify for biopsy at thi s time. Recommend repeat ultrasound in 1 year. 2. There is no significant lymphadenopathy. DATA REPOSITORY:
== END ==
PROVIDERS: PCP Physician Assistant; Visit Provider Physician Assistant
DX: E04.2 Nontoxic multinodular goiter (principal); E04.1 Nontoxic single thyroid nodule
CPT/HCPCS: 76536

== ENCOUNTER 2022-11-22 09:53 | Outpatient (REF) | payer MEDICAID, SELFPAY ==
[2022-11-22 20:40] LABS: ALT 57 U/L (14-59); AST 38 U/L (15-37); Albumin 3.6 g/dL (3.4-5.0); Alkaline Phosphatase 29 U/L (46-116); Anion Gap 6.1 mmol/L (3-11); BUN 15 mg/dL (7-18); Bilirubin, Total 0.3 mg/dL (0.2-1.0); CO2 27.9 mmol/L (21.0-32.0); CREATININE 0.8 mg/dL (0.55-1.02); Calcium 9.1 mg/dL (8.5-10.1); Calculated LDL 125 mg/dL (<100); Chloride 103 mmol/L (98-107); Cholesterol 166 mg/dL (<200); Estimated GFR 86.96 (mL/min/1.73m2); Glucose 95 mg/dL (74-106); HDL Cholesterol 31 mg/dL (40-60); Potassium 5.6 mmol/L (3.5-5.1); Sodium 137 mmol/L (136-145); Total Protein 7.5 g/dL (6.4-8.2); Triglyceride 51 mg/dL (<150)
== END 2022-11-22 09:54 | disposition home or self-care (01) ==
LOC: NCHCN 09:53
PROVIDERS: PCP Physician Assistant; Visit Provider Physician Assistant
DX: R03.0 Elevated blood-pressure reading, without diagnosis of hypertension (principal); E78.49 Other hyperlipidemia; R73.03 Prediabetes; E04.2 Nontoxic multinodular goiter
CPT/HCPCS: 80053; 80061; 84443

== ENCOUNTER 2022-12-08 11:02 | Outpatient (REF) | payer MEDICAID, SELFPAY ==
[2022-12-08 21:20] LABS: Anion Gap 4.8 mmol/L (3-11); BUN 14 mg/dL (7-18); CO2 28.2 mmol/L (21.0-32.0); CREATININE 0.8 mg/dL (0.55-1.02); Calcium 8.6 mg/dL (8.5-10.1); Chloride 103 mmol/L (98-107); Estimated GFR 86.96 (mL/min/1.73m2); Glucose 78 mg/dL (74-106); Potassium 5.2 mmol/L (3.5-5.1); Sodium 136 mmol/L (136-145)
== END 2022-12-08 11:03 | disposition home or self-care (01) ==
LOC: NCHCN 11:02
PROVIDERS: PCP Physician Assistant; Visit Provider Physician Assistant
DX: E87.5 Hyperkalemia (principal)
CPT/HCPCS: 80048

== ENCOUNTER → 2023-01-11 00:51 | Outpatient (CLI) | payer MEDICAID, SELFPAY ==
--- NOTE | 2023-01-11 10:30 | DI.US_ITS ---
Exam(s) US CAROTID EXAM: US CAROTID CLINICAL HISTORY: CAROTID ARTERY STENOSIS, I65.29. TECHNIQUE: Ultrasound carotids performed using grayscale, color-flow, and spectral Doppler imaging. COMPARISON: US US CAROTID from 02/03/2022 FINDINGS: RIGHT CAROTID ARTERY: Plaque: Minimal plaque seen in the bulb. Velocity elevation: None. LEFT CAROTID ARTERY: Plaque: Minimal. Velocity elevation: None. VERTEBRAL ARTERIES: Antegrade flow. Measurements: R Bulb: 77.2cm/s PS / 23.2cm/s ED R CCA: 107cm/s PS / 30.6cm/s ED R ECA: 138cm/s PS / 32.1cm/s ED R ICA Prox: 86cm/s PS / 29.7cm/s ED R ICA Mid: 95.1cm/s PS / 34.1cm/s ED R ICA Distal: 103.6cm/s PS /32.6cm/s ED R Vert: 60.7cm/s PS / 18.8cm/s ED R SVR: 1 R DVR: 1.1 L Bulb: 60.6cm/s PS / 25.2cm/s ED L CCA: 95.3cm/s PS / 32.2cm/s ED L ECA: 87cm/s PS / 18.1cm/s ED L ICA Prox: 83.4cm/s PS / 31.9cm/s ED L ICA Mid: 78.9cm/s PS / 30.1cm/s ED L ICA Distal: 76.1cm/s PS / 29.9cm/s ED L Vert: 55.1cm/s PS / 17.5cm/s ED L SVR: 0.9 L DVR: 1 IMPRESSION: No evidence for hemodynamically significant carotid stenosis. Criteria for Carotid Stenosis: Normal: ICA PSV <125 cm/s no plaque or intimal thickening is visible. <50% stenosis: ICA PSV <125 cm/s and plaque or intimal thickening is visible. 50-69% stenosis: ICA PSV is 125-250 cm/s and plaque is visible. >70% stenosis to near occlusion: ICA PSV >250 cm/s with visible plaque and luminal narrowing. DATA REPOSITORY:
== END ==
PROVIDERS: PCP Physician Assistant; Visit Provider Physician Assistant
DX: R93.1 Abnormal findings on diagnostic imaging of heart and coronary circulation (principal)
CPT/HCPCS: 93880

== ENCOUNTER → 2023-05-12 02:52 | Outpatient (CLI) | payer MEDICAID, SELFPAY ==
--- NOTE | 2023-05-12 08:30 | DI.US_ITS ---
Exam(s) US PELVIS TRANSVAGINAL EXAM: US PELVIS TRANSVAGINAL CLINICAL HISTORY: check stripe N92.0 EXCESSIVE MENSTRATION N93.8 AUB TECHNIQUE: Transabdominal and transvaginal imaging was performed using standard protocol. COMPARISON: US US PELVIS TRANSVAGINAL from 06/24/2022 FINDINGS: UTERUS: Anteverted. 10.9 x 6.7 x 8.2 cm Endometrium: 8 mm Myometrium: Multiple fibroids. The largest fibroid measures 4.4 x 3.1 x 3.7 cm, anterior fundal.. Cervix: Nabothian cysts. OVARIES: Right: Right ovary not visualized. Left: Cyst or mass: None. DOPPLER: Color: Symmetric and uniform flow to both ovaries. No hyperemia. CUL-DE-SAC: Free fluid: None. IMPRESSION: 1. Enlarged uterus with multiple fibroid. No endometrial thickening seen on current exam 2. Unremarkable left ovary. Right ovary not visualized. DATA REPOSITORY:
== END ==
PROVIDERS: PCP Physician Assistant; Visit Provider Obstetrics & Gynecology
DX: N92.0 Excessive and frequent menstruation with regular cycle (principal); N93.8 Other specified abnormal uterine and vaginal bleeding
CPT/HCPCS: 76830; 76856

== ENCOUNTER 2023-05-12 04:22 | Outpatient (CLI) | payer MEDICAID, SELFPAY ==
[2023-05-12 22:32] LABS: FSH <0.3 mIU/mL (See Note)
== END 2023-05-12 04:23 | disposition home or self-care (01) ==
LOC: LBO 04:22
PROVIDERS: PCP Physician Assistant; Visit Provider Obstetrics & Gynecology
DX: N92.0 Excessive and frequent menstruation with regular cycle (principal); N93.8 Other specified abnormal uterine and vaginal bleeding
CPT/HCPCS: 36415; 83001

== ENCOUNTER 2023-05-13 16:28 | Emergency (ER) | payer MEDICAID, SELFPAY ==
[2023-05-13 17:55] VITALS: BP 149/74; PULSE 73; RESP 16; TEMP 36.7; O2SAT 98
--- NOTE | 2023-05-13 18:00 | DI.CT_ITS ---
Exam(s) CT HEAD WO EXAM: CT HEAD WO CLINICAL HISTORY: Right 4th nerve palsy. TECHNIQUE: Imaging Protocol: Axial computed tomography images with coronal and sagittal reformatted images were created and reviewed COMPARISON: No exams were available for comparison FINDINGS: Ventricles and Extra axial spaces: Normal in size and morphology for the patient's age. Hemorrhage: None. Cerebral parenchyma: Normal. No mass effect. No acute territorial infarct is identified. Midline shift: None. Brainstem/Cerebellum: Normal. Calvarium: Normal. Visualized Paranasal sinuses/Mastoids: Clear. Soft Tissues: Unremarkable. IMPRESSION: No acute intracranial process. RADIATION DOSE DELIVERED: 669.76mGy.cm Total DLP DATA REPOSITORY: All CT scans at this facility are submitted to the National Radiology Data Registry (NRDR) Dose Index Registry (DIR) with the [employer] (ACR). RADIATION OPTIMIZATION: All CT scans at this facility use at least one of these dose optimization te chniques: automated exposure control; mA and/or kV adjustment per patient size (includes targeted exa ms where dose is matched to clinical indication); or iterative reconstruction.
--- NOTE | 2023-05-13 19:25 | DI.VRAD_ITS ---
PROCEDURE INFORMATION: Exam: CT Head Without Contrast Exam date and time: 05/13/2023 7:06 PM Age: 58 years old Clinical indication: Other: Right 4th nerve palsy TECHNIQUE: Imaging protocol: Computed tomography of the head without contrast. COMPARISON: CT BRAIN NECK CTA 09/26/2020 8:52 PM FINDINGS: Brain: Cerebral sulci show bilateral symmetry with no supratentorial mass or mass effect detected. Brainstem and cerebellum are unremarkable. There is no evidence of acute transcortical infarction or recent intracranial hemorrhage. Cerebral ventricles: Ventricular and cisternal spaces are normal in size and configuration and there is no midline shift or hydrocephalus seen. Paranasal sinuses: Grossly clear throughout. Mastoid air cells: Grossly clear bilaterally. Bones/joints: Bony calvarium and skull base are intact and no acute fractures are detected. Soft tissues: Unremarkable. IMPRESSION: No evidence of acute transcortical infarction, recent intracranial hemorrhage or hydrocephalus. No acute intracranial process is detected. Dictated and Authenticated by: Kishore Odonnell MD. Ordering:GLORIA Doe MD
[2023-05-13 19:31] VITALS: BP 172/96; PULSE 68
--- NOTE | 2023-05-13 19:31 | ED.GENADUL_ITS ---
HPI General Date/Time Provider Initiated Documentation: 05/13/23 16:54 . [facility] Narrative: MDM This is an overall very well-appearing mildly hypertensive but normothermic and not tachycardic 58-year-old female with right IV cranial nerve palsy for which she underwent dry CT scan which was negative for any space-occupying lesion. She is not markedly obese to suggest increased intracranial pressure. She is neurologically intact beyond her nerve palsy so my suspicion for CVA is exceedingly low and I did not feel that she would be a tPA candidate nor would she require an emergent MRI. I considered subarachnoid hemorrhage however the patient did not have sudden onset headache and as result my suspicion for subarachnoid hemorrhage was low so I did not feel that she required a CT angiogram nor lumbar puncture. I considered whether or not to obtain a CT angiogram to assess for any small aneurysms which could be causing compressive symptoms leading to the patient's cranial nerve palsy. Given that the patient will require an MRI will defer vessel imaging to the MRI that Dr. Gomes has ordered??MRI brain with and without. Not pale nor tachycardic so mu suspicion for B12 deficiency is low. No nuchal rigidity nor fevers to suggest meningitis. No rash to suggest zoster. Based on the patient's age multiple sclerosis is less likely. No ptosis to suggest myasthenia gravis. No trauma to suggest traumatic cause. No history of thyroid disease to suggest thyroid ophthalmopathy. Patient and I discussed her reassuring CT scan. We discussed return to the emergency department for any sudden onset headache and any focal areas of weakness or any falls. Given that she was seen by artificial teeth inspector earlier this morning where a comprehensive visual assessment was performed I did not obtain visual acuities in the emergency department. Patient will follow-up next week with Dr. Gomes. I advised her to call diagnostic imaging at [facility] early next week to schedule an appointment for her previously ordered outpatient MRI. I advised that if she could not get in touch had any concerns that she should return to the emergency department. She understood her return indications and was discharged with an empiric trial of expectant outpatient management. Chronic conditions affecting the care of the patient: Migraines History obtained from an outside historian: Dr. Gomes External record review: N/A Medications: N/A Social determinants of health affecting disposition: N/A Management discussed with: Dr. Gomes Treatment/interventions considered: Vessel imaging but deferred Response to therapies provided: N/A HPI This is a 58-year-old female with history of migraines arrived to the emergency department via private vehicle in the setting of double vision which began this morning. Patient noted this morning at approximately 6:30 AM when she was lying in bed on her phone that she had double vision. She was able to go back to sleep. She subsequently developed a gradual onset headache. She took sumatriptan and 3 ibuprofens. She has a history of migraines with [place]. She saw her artificial teeth inspector who was concerned for a 4th nerve palsy and sent her to the emergency department. Her headache is resolved. She endorses a vertical diplopia in the right eye. She has been given an eye patch. She denies any chest pain shortness of breath fevers and sore throat. Her headache was gradual in onset. Exam General: Well-appearing in no acute distress speaking in complete sentences. Head: Normocephalic, atraumatic. Eye: Right eye with limitations in depression and adduction. Otherwise extraocular eye movements intact. No conjunctival injection. No scleral icterus. Pupils bilaterally dilated. Ear, nose, mouth, throat: Grossly normal inspection. Normal voice, handling secretions normally. Neck: Trachea midline. Cardiovascular: Well-perfused distal extremities. Respiratory: Nonlabored respiration. Gastrointestinal: Nondistended abdomen. Musculoskeletal: No edema. Moving all 4 extremities spontaneously. Skin: Normal for age and race, grossly normal temperature and turgor. No acute rash. Neurologic: Alert and appropriate, no apparent acute deficits. Please see eye exam above. Otherwise cranial nerves II through XII intact grossly. 5 out of 5 bilateral upper and lower extremity strength. GCS 15. No pronator drift. No truncal ataxia. Psychiatric: Mood and manner are appropriate. Grooming and personal hygiene are appropriate. Related Data Home Medications Medication Instructions Recorded Confirmed cholecalciferol (vitamin D3) 50 1 tab PO DAILY 03/20/13 05/13/23 mcg (2,000 unit) capsule (Vitamin D3) magnesium 200 mg tablet 1 tab PO DAILY 03/20/13 05/13/23 multivitamin (Daily Multi-Vitamin 1 tab PO DAILY 03/20/13 05/13/23 tablet) sumatriptan succinate 50 mg tablet See Rx Instructions PO .COMPLEX 03/05/20 05/13/23 (Imitrex) aspirin 81 mg tablet,delayed 81 mg PO DAILY 05/27/21 05/13/23 release levetiracetam 500 mg tablet 500 mg PO BID 05/27/21 05/13/23 turmeric 500 mg-black pepper 1 cap PO DAILY 07/27/21 05/13/23 extract 3 mg capsule acetaminophen 500 mg tablet 500 mg PO Q6H PRN PRN pain #40 tabs 08/12/21 3 ibuprofen 600 mg tablet 600 mg PO TID PRN pain #30 tabs 08/12/21 05/13/23 coenzyme Q10 75 mg capsule (Ultra 75 mg PO DAILY 05/21/22 05/13/23 CoQ10) norethindrone acetate 5 mg tablet 10 mg (2 x 5 mg) PO BID #360 tabs 11/09/22 05/13/23 (Aygestin) amlodipine 5 mg tablet 5 mg PO DAILY 01/11/23 05/13/23 norethindrone acetate 5 mg tablet 5 mg PO .COMPLEX #60 tabs 05/03/23 05/13/23 evolocumab 420 mg/3.5 mL mg subcut 05/13/23 subcutaneous wearable injector (Repatha Pushtronex) Previous Rx's Medication Instructions Recorded acetaminophen 500 mg tablet 500 mg PO Q6H PRN PRN pain #40 tabs 08/12/21 ibuprofen 600 mg tablet 600 mg PO TID PRN pain #30 tabs 08/12/21 norethindrone acetate 5 mg tablet 10 mg (2 x 5 mg) PO BID #360 tabs 11/09/22 (Aygestin) norethindrone acetate 5 mg tablet 5 mg PO .COMPLEX #60 tabs 05/03/23 Allergies Allergy/AdvReac Type Severity Reaction Status Date / Time amoxicillin Allergy Intermediate none noted Verified 05/13/23 18:01 on referral mold Allergy Intermediate Other (See Verified 05/13/23 18:01 Comment) Penicillins Allergy Mild Skin Rash Verified 05/13/23 18:01 General Stated Complaint: EyeProblem ANGE: 2 Course Vital Signs Vital signs: Vital Signs Temperature 36.7 C 05/13/23 17:55 Pulse 73 05/13/23 17:55 Respiratory Rate 16 05/13/23 17:55 Blood Pressure 149/74 H 05/13/23 17:55 Pulse Oximetry 98 05/13/23 17:55 Temperature 36.7 C 05/13/23 17:55 Temperature Source Temporal Artery Scan 05/13/23 17:55 Pulse 73 05/13/23 17:55 Respiratory Rate 16 05/13/23 17:55 Respiratory Effort Normal 05/13/23 19:14 Blood Pressure 149/74 H 05/13/23 17:55 Blood Pressure Position Sitting 05/13/23 17:55 Pulse Oximetry 98 05/13/23 17:55 Oxygen Delivery Method Room Air 05/13/23 17:55 Oxygen Flow Rate 0 05/13/23 17:55 Pain Level 0 05/13/23 17:55 Medical Decision Making Quality:SDOH Health Related Social Needs: No Data to Display PFSH All Active Problems (Updated 05/13/23 @ 19:32 by Nader Rose MD) Fourth nerve palsy of right eye (Acute) Hypertension (Chronic) Menorrhagia (Acute) DUB (dysfunctional uterine bleeding) (Acute) Left carpal tunnel syndrome (Acute) History of exploratory laparotomy (Acute) Exploratory laparotomy for ruptured ectopic , age 21 Thyroid dysfunction (Acute) Abnormal uterine bleeding (Acute) Uterine fibroid (Acute) Hyperplastic colon polyp (Acute) New onset seizure (Acute) History of atypical migraine (Acute) Hyperlipidemia (Acute) Bilateral carotid artery stenosis (Acute) Prediabetes (Acute) Rosacea (Acute) Gout (Chronic) Cubital tunnel syndrome on left (Acute) Medical History Migraine headache with aura Abnormal colonoscopy Hx of seizure disorder Per pt. states she see a neurologist saw Dr. Yates states it was brought on from a migraine. Per pt. states it was a 30 second LOC seizure w/ convulsions, loss of bladder function, Last seizure 09/26/2020. Currently managed on medication. Seasonal allergies Thyroiditis Hemiplegic migraine Actinic keratoses Surgical History Right carpal tunnel syndrome S/P R ECTR: 08/12/2021 Social History Smoking/Tobacco Use Status: Former Tobacco Use Quit Date: 03/28/15 Smoking risk assessment performed?: Yes Alcohol Intake: current Alcohol Intake frequency: 0-2 drinks per day Alcohol type: beer, wine and hard liquor Drug use: Never Substance use type: does not use Do you feel safe at home: Yes Do you feel safe in your relationship?: Yes PAWSS Have you Been Recently Intoxicated or Drunk Within the Last 30 days?: No Have you Ever Experienced Previous Episodes of Alcohol Withdrawal?: No Have you ever Experienced Withdrawal Seizures?: No Have you ever Experienced Delirium Tremens(DT)s?: No Have you ever undergone Alcohol Rehabilitation Treatment (i.e, inpt ot outpatient treatment programs)?: No Have you ever Experienced Blackouts?: No Have you ever Combined Alcohol with other Downers within the last 90 days?: No Have you ever Combined Alcohol with any other Substance of Abuse during the last 90 days?: No Positive Blood Alcohol level on Presentation? [PCS.BAL]: Unable to Obtain Evidence of Increased Autonomic Activity (i.e. HR>120, tremor, sweating, agitation, nausea)?: No Result: 0 Discharge Plan Disposition Patient Disposition: Home Discharge Details Clinical Impression: Fourth nerve palsy of right eye Primary Care Provider: Celeste Barcenas ED Provider: Nader Rose [place] Meds and New Rx's Prescriptions: Continued turmeric-turmeric ext-pepper 500-3 mg capsule 1 cap PO DAILY Ultra CoQ10 75 mg capsule 75 mg PO DAILY norethindrone acetate 5 mg tablet 5 mg PO .COMPLEX Qty: 60 3RF Rx Instructions: 5 mg orally Every 6 hours until the bleeding stops then resume twice daily dosing; amlodipine 5 mg tablet 5 mg PO DAILY sumatriptan succinate [Imitrex] 50 mg tablet See Rx Instructions PO .COMPLEX Rx Instructions: take 1 tab at onset of headache; if no relief may repeat 1 tab after at least 2 hrs; max = 4 tabs/24 hr PO levetiracetam 500 mg tablet 500 mg PO BID aspirin 81 mg tablet,delayed release (DR/EC) 81 mg PO DAILY norethindrone acetate [Aygestin] 5 mg tablet 10 mg PO BID Qty: 360 1RF multivitamin [Daily Multi-Vitamin] 1 EACH tablet 1 tab PO DAILY magnesium 200 MG tablet 1 tab PO DAILY cholecalciferol (vitamin D3) [Vitamin D3] 2,000 UNIT capsule 1 tab PO DAILY Repatha Pushtronex 420 mg/3.5 mL wearable injector SUBCUT Patient Comments: INJECT 3.5ML SUBCUTANEOUSLY ONCE A MONTH acetaminophen 500 mg tablet 500 mg PO Q6H PRN PRN (Reason: pain) Qty: 40 3RF ibuprofen 600 mg tablet 600 mg PO TID PRN (Reason: pain) Qty: 30 3RF Discharge Instructions Additional Instructions: You were seen in the emergency department for your double vision. Your CAT scan showed no sign of any bleeding in your head. As we discussed, please continue taking your medications as previously directed. If you develop any weakness any sudden onset headache or any nausea or vomiting please return to the emergency department. Otherwise please call the diagnostic imaging department on Tuesday next week to set up the MRI which has been ordered by your artificial teeth inspector. Discharge Data Discharge Date/Time-TO BE ENTERED AT DEPARTURE: 05/13/23 19:43
[2023-05-13 19:41] VITALS: BP 172/96; PULSE 68; RESP 16; O2SAT 98
== END 2023-05-13 19:43 | disposition home or self-care (01) ==
PROVIDERS: Emergency Provider Emergency Medicine; PCP Physician Assistant
DX: H53.2 Diplopia (principal); Z86.69 Personal history of other diseases of the nervous system and sense organs; H49.11 Fourth [trochlear] nerve palsy, right eye; I10 Essential (primary) hypertension
CPT/HCPCS: 99284; 70450; 99283

== ENCOUNTER 2023-07-07 05:38 | Outpatient (CLI) | payer MEDICAID, SELFPAY ==
[2023-07-07 13:36] LABS: TSH 2.61 uIU/Ml (0.36-3.74)
[2023-07-07 22:33] LABS: Estradiol <12 pg/mL (See Note)
[2023-07-07 22:47] LABS: FSH 0.3 mIU/mL (See Note)
[2023-07-07 22:50] LABS: Prolactin 12.7 ng/mL (See Note)
== END 2023-07-07 05:39 | disposition home or self-care (01) ==
LOC: LBO 05:38
PROVIDERS: PCP Physician Assistant; Visit Provider Obstetrics & Gynecology
DX: N93.9 Abnormal uterine and vaginal bleeding, unspecified (principal)
CPT/HCPCS: 36415; 82670; 83001; 84146; 84443

== ENCOUNTER 2023-08-03 10:02 | Outpatient (REF) | payer MEDICAID, SELFPAY ==
[2023-08-03 20:44] LABS: Hemoglobin A1C 5.7 % (<5.7)
[2023-08-03 22:07] LABS: ALT 45 U/L (14-59); AST 34 U/L (15-37); Albumin 3.9 g/dL (3.4-5.0); Alkaline Phosphatase 24 U/L (46-116); Anion Gap 9.9 mmol/L (3-11); BUN 17 mg/dL (7-18); CO2 26.1 mmol/L (21.0-32.0); CREATININE 0.8 mg/dL (0.55-1.02); Calcium 9.1 mg/dL (8.5-10.1); Calculated LDL 128 mg/dL (<100); Chloride 103 mmol/L (98-107); Cholesterol 182 mg/dL (<200); Estimated GFR 86.42 (mL/min/1.73m2); Glucose 93 mg/dL (74-106); HDL Cholesterol 33 mg/dL (40-60); Potassium 4.9 mmol/L (3.5-5.1); Sodium 139 mmol/L (136-145); TSH (W/Ref FT4) 3.63 uIU/mL (0.36-3.74); Total Protein 7.8 g/dL (6.4-8.2); Triglyceride 106 mg/dL (<150)
[2023-08-03 22:19] LABS: Bilirubin, Total 0.5 mg/dL (0.2-1.0)
== END 2023-08-03 10:03 | disposition home or self-care (01) ==
LOC: NCHCN 10:02
PROVIDERS: PCP Physician Assistant; Visit Provider Physician Assistant
DX: I10 Essential (primary) hypertension (principal); E03.9 Hypothyroidism, unspecified; R73.03 Prediabetes
CPT/HCPCS: 80053; 80061; 83036; 84443

== ENCOUNTER → 2023-08-24 02:00 | Outpatient (CLI) | payer MEDICAID, SELFPAY ==
--- NOTE | 2023-08-24 13:23 | DI.RAD_ITS ---
Exam(s) XR HIP PELVIS ADULT BL EXAM: XR HIP PELVIS ADULT BL CLINICAL HISTORY: Pain in Rt hip, M25.551; pain in Lt hip, M25.552; sx for 3 mos, no trauma. TECHNIQUE: 2D digital imaging was performed of the pelvis and bilateral hips. Three images were obt ained. AP pelvis and lateral views of both hips were obtained. COMPARISON: No exams were available for comparison FINDINGS: BONES: No acute fracture is present. No bony destructive lesion is seen. There is a small enthesophyt e at the left greater trochanter. JOINTS: No dislocation present. There are small bilateral acetabular osteophytes. There is mild narr owing of the superior joint space of the hips bilaterally. The sacroiliac joints and symphysis pubis are well maintained. SOFT TISSUE: Normal. IMPRESSION: Mild degenerative changes in the hips. DATA REPOSITORY: RADIATION DOSE DELIVERED:
== END ==
PROVIDERS: PCP Physician Assistant; Visit Provider Physician Assistant
DX: M16.0 Bilateral primary osteoarthritis of hip (principal)
CPT/HCPCS: 73521

== ENCOUNTER 2023-11-22 01:25 | Outpatient (CLI) | payer MEDICAID, SELFPAY ==
--- NOTE | 2023-11-22 08:00 | DI.US_ITS ---
Exam(s) US THYROID EXAM: US THYROID CLINICAL HISTORY: NON TOXIC MULTI NODULAR GOITER,E04.2. TECHNIQUE: Ultrasound thyroid performed using standard protocol. COMPARISON: US US PELVIS TRANSVAGINAL from 05/12/2023 FINDINGS: Both thyroid lobes as well as the isthmus again exhibit normal size. Again noted is a single nodule in each lobe. RIGHT THYROID LOBE: Measures 1.5 cm AP x 1.0 cm wide x 3.4 cm craniocaudal The solitary nodule previously described appears somewhat different in shape than previous, and appea rs somewhat less well-defined, currently measuring approximately 5 x 4 x 2 mm. Grading is as follows Composition: Solid-2 points Echogenicity: Hypoechoic-2 points Shape: Taller than wider-3 points Margin: Ffr-yelpqzg-4 points Echogenic Foci: None-0 points Total Points for this nodule: 7 ACR Ti-Rads Category: TR5 Although this is a TR 5 level nodule, it still measures less than 1 cm therefore does not require bio psy at this time. ISTHMUS: Normal thickness. There are no nodules in the isthmus. LEFT THYROID LOBE: Measures 1.1 cm AP x 1.3 wide x 3.4 cm craniocaudal The previously described solitary nodule in left lobe exhibits minimal change from the previous study . It presently measures 0.6 x 0.4 x 0.4 cm. Grading is as follows: Composition: Solid-2 points Echogenicity: Isoechoic-1 points Shape: Wider than taller in the transverse plane-0 points Margin: Smooth-0 points Echogenic Foci: None-0 points Total points for this nodule: 3 ACR Ti-Rads Category: 3 This nodule does not require biopsy. LYMPH NODES: There is no significant adenopathy. IMPRESSION: 1. Again noted is a single sub cm solid nodule in each lobe. The small nodule in left lobe is uncha nged from previous. 2. The nodule in the right lobe appears slightly different than previous and is a TR 5 level nodule. However, it still measures less than 1 cm in size and therefore does not require biopsy at this time . However, given the change in its appearance I recommend follow-up ultrasound in 6 months (instead of 1 year). 3. There is no significant lymphadenopathy. DATA REPOSITORY:
== END 2023-11-22 01:45 ==
LOC: DI 01:25
PROVIDERS: PCP Physician Assistant; Visit Provider Physician Assistant
DX: E04.2 Nontoxic multinodular goiter (principal)
CPT/HCPCS: 76536

== ENCOUNTER 2024-01-12 00:38 | Outpatient (CLI) | payer MEDICAID, SELFPAY ==
--- NOTE | 2024-01-12 07:15 | DI.MRI_ITS ---
Exam(s) MR LOWER JOINT RT WO EXAM: MR LOWER JOINT RT WO CLINICAL HISTORY: rt hip pain,trochanteric bursitis rt hip,m25.551,m70.61 TECHNIQUE: Multiplanar multisequence MRI of right hip was performed COMPARISON: No exams were available for comparison FINDINGS: Bones: There is no evidence of a fracture or avascular necrosis. No significant joint effusion or l abral injury is present. No bone marrow edema is seen. The visualized portions of the SI joints and s ymphysis pubis are well maintained. Musculotendinous structures: There is hyperintense signal seen within the right hamstring tendon con sistent with a partial tear. There is mild edema seen in the surrounding soft tissues. There is hyp erintense signal seen lateral to the right greater trochanter adjacent to both the gluteus medius and gluteus minimus tendons. There is mild hyperintense signal seen in the adjacent gluteus medius musc le. This is consistent with a muscle strain. There does appear to be some discontinuity of the glut eus medius tendon consistent with a partial tear. There is a 1 cm cyst adjacent to the lateral aspec t of the left hip suspicious for a paralabral tear. There is heterogeneity of the uterus with a few small hypointense nodule suggesting small fibroids. IMPRESSION: 1. Partial tear of the hamstring tendon at its insertion site. 2. Findings suggestive of a partial tear of the gluteus medius tendon at its insertion site with a st rain of the gluteus medius muscle. DATA REPOSITORY:
== END 2024-01-12 00:58 ==
LOC: DI 00:39
PROVIDERS: PCP Physician Assistant; Visit Provider Student in an Organized Health Care Education/Training Program
DX: M70.61 Trochanteric bursitis, right hip (principal); S76.311A Strain of muscle, fascia and tendon of the posterior muscle group at thigh level, right thigh, initial encounter; X58.XXXA Exposure to other specified factors, initial encounter
CPT/HCPCS: 73721

== ENCOUNTER 2024-02-14 13:18 | Outpatient (REF) | payer MEDICAID, SELFPAY ==
[2024-02-14 19:50] LABS: Abs Immature Grans 0.04 10^3/uL (0.0-0.06); Absolute Basophil Count 0.11 10^3/uL (0.0-0.2); Absolute Eosinophil Count 0.18 10^3/uL (0.0-0.7); Absolute Lymphocyte Count 2.09 10^3/uL (1.2-3.4); Absolute Neutrophil Count 6.15 10^3/uL (1.2-6.7); Basophils % 1.1 %; Eosinophils % 1.9 %; HCT 46.6 % (36.0-46.0); HGB 15.5 g/dL (11.2-15.7); Immature Grans % 0.4 %; Lymphocytes % 21.6 %; MCH 31.6 pg (27.0-33.0); MCHC 33.3 % (32.0-36.0); MCV 95 fL (80-95); MPV 9.7 fL (8.0-11.0); Monocytes % 11.4 %; Neutrophils % 63.6 %; Platelet Count 421 10^3/uL (130-400); RDW-SD 45.9 fL; WBC 9.67 10^3/uL (4.4-10.8)
[2024-02-14 20:18] LABS: ALT 45 U/L (14-59); AST 35 U/L (15-37); Albumin 3.7 g/dL (3.4-5.0); Alkaline Phosphatase 31 U/L (46-116); Anion Gap 10.4 mmol/L (3-11); BUN 14 mg/dL (7-18); Bilirubin, Total 0.45 mg/dL (0.2-1.0); CO2 24.6 mmol/L (21.0-32.0); CREATININE 0.8 mg/dL (0.55-1.02); Calculated LDL 147 mg/dL (<100); Chloride 105 mmol/L (98-107); Cholesterol 206 mg/dL (<200); Estimated GFR 86.42 (mL/min/1.73m2); Glucose 85 mg/dL (74-106); HDL Cholesterol 30 mg/dL (40-60); Potassium 4.8 mmol/L (3.5-5.1); Sodium 140 mmol/L (136-145); TSH (W/Ref FT4) 2.75 uIU/mL (0.36-3.74); Total Protein 7.6 g/dL (6.4-8.2); Triglyceride 147 mg/dL (<150)
[2024-02-15 19:18] LABS: Hepatitis C Ab w Rflx HCV PCR Negative (Negative)
[2024-02-15 19:24] LABS: HIV-1/2 Ag & Ab Screen Negative (Negative)
== END 2024-02-14 13:19 | disposition home or self-care (01) ==
LOC: NCHCN 13:18
PROVIDERS: PCP Physician Assistant; Visit Provider Physician Assistant
DX: E78.5 Hyperlipidemia, unspecified (principal); E03.9 Hypothyroidism, unspecified; I10 Essential (primary) hypertension; Z11.4 Encounter for screening for human immunodeficiency virus [HIV]; Z11.59 Encounter for screening for other viral diseases
CPT/HCPCS: 80053; 80061; 86803; 87389; 84443; 85025

== ENCOUNTER 2024-05-31 01:40 | Outpatient (CLI) | payer MEDICAID, SELFPAY ==
--- NOTE | 2024-05-31 08:15 | DI.RAD_ITS ---
Exam(s) RF JOINT INJ. FLUORO GUID RAD EXAM: RF JOINT INJ. FLUORO GUID RAD CLINICAL HISTORY: R HIP PAIN,BILAT OA,BILAT TROCHANTERIC BURSITIS,M70.62,M70.61,M16.0. TECHNIQUE: 2D and realtime digital imaging was performed. CONTRAST MATERIAL: Intra articular Omnipaque 300-2 cc COMPARISON: No exams were available for comparison FINDINGS: This fluoroscopic guided right hip steroid injection was performed at the request of the referring or thopedic surgeon. Patient was consented prior to this procedure. The patient was placed in the supine position on the fluoroscopy table. Using sterile technique and adequate skin-subcutaneous anesthesia, fluoroscopic guidance was used to advance a 22 gauge spinal needle into to the hip joint at the level the femoral neck. Position was c onfirmed with intra-articular injection of 2 cc Omnipaque 300. Thereafter a sterile solution of 3 cc 0.5 percent bupivacaine and 40 milligram Depo-Medrol was inject ed into the articular space via the indwelling needle. Needle was withdrawn. Band-Aid applied. The patient tolerated this procedure well and there were no intraprocedural complications. IMPRESSION: Successful right hip fluoroscopic guided steroid injection. RADIATION DOSE DELIVERED: Ka,r=6.53mGy
--- NOTE | 2024-05-31 08:15 | DI.RAD_ITS ---
Exam(s) RF JOINT INJ. FLUORO GUID RAD EXAM: RF JOINT INJ. FLUORO GUID RAD CLINICAL HISTORY: LT HIP PAIN, BILAT OA,BILAT TROCHANTERIC BURSITIS,FLUORO GUIDED INJ. TECHNIQUE: 2D and realtime digital imaging was performed. CONTRAST MATERIAL: Intra-articular Omnipaque 300-3 cc COMPARISON: No exams were available for comparison FINDINGS: This fluoroscopic guided left hip steroid injection was performed at the request of the referring [facility] surgeon. Patient was consented prior to this procedure. The patient was placed in the supine position on the fluoroscopy table. Using sterile technique and adequate skin-subcutaneous anesthesia, fluoroscopic guidance was used to advance a 22 gauge spinal needle into to the hip joint at the level the femoral neck. Intra-articula r position was confirmed with intra-articular injection of Omnipaque 300. First injection revealed q uestionable intra-articular position. The needle was slightly altered and additional contrast instil lation revealed intra-articular position. Thereafter a sterile solution of 3 cc 0.5 percent bupivacaine and 40 milligram Depo-Medrol was inject ed into the articular space via the indwelling needle. Needle was withdrawn. Band-Aid applied. The patient tolerated this procedure well and there were no intraprocedural complications IMPRESSION: Successful fluoroscopic guided left hip steroid injection RADIATION DOSE DELIVERED: Ka,r=6.53mGy (for both injections)
[2024-05-31] MEDS: Omnipaque 300 MG/ML 10 ML BTL IJ (16:05)
[2024-05-31] MEDS: Bupivacaine 0.5% Pres-Free 10 ML VIAL IJ (16:06)
[2024-05-31] MEDS: Lidocaine 1% Pres-Free 30 ML VIAL 15 ML IJ (16:07)
[2024-05-31] MEDS: methylPREDNISolone ACETATE 40 MG/ML VIAL IJ ×2 (16:08→16:09)
== END 2024-05-31 02:00 ==
LOC: DI 01:40
PROVIDERS: PCP Physician Assistant; Visit Provider Student in an Organized Health Care Education/Training Program
DX: M16.0 Bilateral primary osteoarthritis of hip (principal); M70.61 Trochanteric bursitis, right hip; M70.62 Trochanteric bursitis, left hip
CPT/HCPCS: 20610; 77002; J0665; J1010

== ENCOUNTER 2024-05-31 15:52 | Emergency (ER) | payer MEDICAID, SELFPAY ==
[2024-05-31 15:56] VITALS: BP 182/106; PULSE 85; RESP 20; TEMP 36.2; O2SAT 99
--- NOTE | 2024-05-31 16:16 | W.ED.GENAD ---
Discharge Plan Disposition Patient Disposition: Home Condition: Improving Discharge Details Chief Complaint: Headache Clinical Impression: Migraine with aura Primary Care Provider: Celeste Barcenas ED Provider: Elham Junior Home Meds and New Rx's Prescriptions: No Action turmeric-turmeric ext-pepper 500-3 mg capsule 1 cap PO DAILY Ultra CoQ10 75 mg capsule 75 mg PO DAILY sumatriptan succinate [Imitrex] 50 mg tablet See Rx Instructions PO .COMPLEX Rx Instructions: take 1 tab at onset of headache; if no relief may repeat 1 tab after at least 2 hrs; max = 4 tabs/24 hr PO aspirin 81 mg tablet,delayed release (DR/EC) 81 mg PO DAILY norethindrone acetate 5 mg tablet 5 mg PO .COMPLEX Qty: 120 3RF Rx Instructions: 5 mg orally Every 6 hours until the bleeding stops then resume twice daily dosing; amlodipine 2.5 mg tablet 2.5 mg PO DAILY Fish Oil 120-180 mg capsule 1 cap PO DAILY ferrous sulfate [FeroSul] 325 mg (65 mg iron) tablet 325 mg PO DAILY Lumigan 0.01 % drops 1 drp ophthalmic (eye) QPM alprazolam 0.5 mg tablet 0.5 mg PO ONCE PRN (Reason: Claustrophobia) Qty: 2 0RF Rx Instructions: Take 1 60 minutes prior to MRI. May take an additional 1 if still anxious 30 mins prior to MRI. norethindrone acetate [Gallifrey] 5 mg tablet See Rx Instructions .ROUTE .COMPLEX Qty: 360 1RF Dose Instruction: TAKE TWO TABLETS BY MOUTH TWICE A DAY Rx Instructions: TAKE TWO TABLETS BY MOUTH TWICE A DAY levetiracetam 500 mg tablet 250 mg PO BID multivitamin [Daily Multi-Vitamin] 1 EACH tablet 1 tab PO DAILY magnesium 200 MG tablet 1 tab PO DAILY cholecalciferol (vitamin D3) [Vitamin D3] 2,000 UNIT capsule 1 tab PO DAILY Repatha Pushtronex 420 mg/3.5 mL wearable injector 420 mg SUBCUT QMONTH Patient Comments: INJECT 3.5ML SUBCUTANEOUSLY ONCE A MONTH acetaminophen 500 mg tablet 500 mg PO Q6H PRN PRN (Reason: pain) Qty: 40 3RF ibuprofen 600 mg tablet 600 mg PO TID PRN (Reason: pain) Qty: 30 3RF Discharge Instructions Instructions: Migraine in adults, Allergic Reaction ED Referrals: Celeste Barcenas [Primary Care Provider] - 5 days Discharge Data Discharge Physician: Elham Junior [facility] General Date/Time Provider Initiated Documentation: 05/31/24 15:58. HPI Narrative: 59-year-old female with history of migraines, osteoarthritis presents for evaluation of possible allergic reaction. Patient just had bilateral intra-articular hip injections for presumed osteoarthritis. She received Depo-Medrol, bupivacaine, and subcu lidocaine. After the procedure she mentioned that her lip and tongue felt numb. She did have a slight headache and had some difficulty standing. She states that she did work this morning and has not eaten. She decided to go to the cafeteria. At time my evaluation she is eating food. She is not having any difficulty swallowing. No difficulty breathing. No tongue swelling. No rash. She states that she has a history of migraines and when she gets stressed and anxious that can trigger a migraine. Her typical migraine aura is to have some numbness to her lip and tongue which is consistent with her symptoms today. She took her own sumatriptan prior to my evaluation. She does not currently have a headache. Her numbness to her lip and tongue has resolved. She had a recent upper respiratory infection about 1 month ago. She denies any cough or cold at this time. No chest pain or shortness of breath. Related Data Home Medications ?Medication ?Instructions ?Recorded ?Confirmed cholecalciferol (vitamin D3) 50 1 tab PO DAILY 03/20/13 05/31/24 mcg (2,000 unit) capsule (Vitamin D3) magnesium 200 mg tablet 1 tab PO DAILY 03/20/13 05/31/24 multivitamin (Daily Multi-Vitamin 1 tab PO DAILY 03/20/13 05/31/24 tablet) sumatriptan succinate 50 mg tablet See Rx Instructions PO .COMPLEX 03/05/20 05/31/24 (Imitrex) aspirin 81 mg tablet,delayed 81 mg PO DAILY 05/27/21 05/31/24 release turmeric 500 mg-black pepper 1 cap PO DAILY 07/27/21 05/31/24 extract 3 mg capsule acetaminophen 500 mg tablet 500 mg PO Q6H PRN PRN pain #40 tabs 08/12/21 05/31/24 ibuprofen 600 mg tablet 600 mg PO TID PRN pain #30 tabs 08/12/21 05/31/24 coenzyme Q10 75 mg capsule (Ultra 75 mg PO DAILY 05/21/22 05/31/24 CoQ10) evolocumab 420 mg/3.5 mL 420 mg subcut QMONTH 05/13/23 05/31/24 subcutaneous wearable injector (Repatha Pushtronex) norethindrone acetate 5 mg tablet 5 mg PO .COMPLEX #120 tabs 08/16/23 05/31/24 amlodipine 2.5 mg tablet 2.5 mg PO DAILY 08/30/23 05/31/24 bimatoprost 0.01 % eye drops 1 drp ophthalmic (eye) QPM 08/30/23 05/31/24 (Jet) docosahexaenoic acid (dha)-epa 120 1 cap PO DAILY 08/30/23 05/31/24 mg-180 mg capsule (Fish Oil) ferrous sulfate 325 mg (65 mg 325 mg PO DAILY 08/30/23 05/31/24 iron) tablet (FeroSul) alprazolam 0.5 mg tablet 0.5 mg PO ONCE PRN Claustrophobia 12/23/23 05/31/24 #2 tabs norethindrone acetate 5 mg tablet See Rx Instructions .Route 04/17/24 05/31/24 (Uriel) .COMPLEX #360 tabs levetiracetam 500 mg tablet 250 mg PO BID 05/08/24 05/31/24 Previous Rx's ?Medication ?Instructions ?Recorded acetaminophen 500 mg tablet 500 mg PO Q6H PRN PRN pain #40 tabs 08/12/21 ibuprofen 600 mg tablet 600 mg PO TID PRN pain #30 tabs 08/12/21 norethindrone acetate 5 mg tablet 5 mg PO .COMPLEX #120 tabs 08/16/23 alprazolam 0.5 mg tablet 0.5 mg PO ONCE PRN Claustrophobia 12/23/23 #2 tabs norethindrone acetate 5 mg tablet See Rx Instructions .Route 04/17/24 (Uriel) .COMPLEX #360 tabs Allergies Allergy/AdvReac Type Severity Reaction Status Date / Time amoxicillin Allergy Intermediate none noted Verified 05/31/24 16:01 on referral mold Allergy Intermediate Other (See Verified 05/31/24 16:01 Comment) Penicillins Allergy Mild Skin Rash Verified 05/31/24 16:01 General Stated Complaint: Headache ANGE: 3 Review of Systems Narrative: Remainder of review of systems otherwise negative except for as noted in the HPI x 10. Exam Narrative Exam Narrative: General: non-toxic, no respiratory distress, comfortable HEENT: normocephalic, atraumatic, lids and lashes normal, PERRL, EOMI, anicteric sclera, no conjunctival injection, moist oral mucosa, no pharyngeal exudate, uvula midline Card: regular rate and rhythm, S1S2, no murmurs, rubs, or gallops Lungs: good air entry, clear to auscultation bilaterally. no wheezes, rales, rhonchi, or retractions Abd: soft, non-tender, non-distended, normal bowel sounds, no rebound or guarding, no peritoneal signs Musculoskeletal: full range of motion of arms and legs, no tenderness to palpation. no clubbing, cyanosis, or edema Neurologic: GSC 15, CN 2-12 intact bilaterally, speech normal, strength normal, sensation intact distally in all four extremities, gait normal, 2+ biceps tendon reflexes, normal finger to nose, normal rapid alternating movements, no pronator drift Psych: alert and oriented Skin: no petechiae, no lesions, warm and dry Course Vital Signs Vital signs: Vital Signs Temperature 36.2 C L 05/31/24 15:56 Pulse 85 05/31/24 15:56 Respiratory Rate 20 05/31/24 15:56 Blood Pressure 182/106 H 05/31/24 15:56 Pulse Oximetry 99 05/31/24 15:56 Temperature 36.2 C L 05/31/24 15:56 Temperature Source Oral 05/31/24 15:56 Pulse 85 05/31/24 15:56 Respiratory Rate 20 05/31/24 15:56 Blood Pressure 182/106 H 05/31/24 15:56 Blood Pressure Position Sitting 05/31/24 15:56 Pulse Oximetry 99 05/31/24 15:56 Oxygen Delivery Method Room Air 05/31/24 15:56 Oxygen Flow Rate 0 05/31/24 15:56 Pain Level 2 05/31/24 15:56 Medical Decision Making 59-year-old female presents for evaluation of episode of numbness to lip and tongue which occurred after bilateral intra-articular hip injections. This is also consistent with patient's aura for migraine. The symptoms have resolved on their own. She did take her migraine medication. She states that she was stressed and felt a headache coming on prior to the symptoms. There are no signs of systemic allergic reaction. She is neurologically intact. NIH stroke score equals 0. I do not feel that this is secondary to an allergic reaction. Blood sugar is normal. Patient was able to continue eating. She remains neurologically intact. No further symptoms develop. I do feel that she is stable for discharge home. She understands indications to return. Quality:SDOH Health Related Social Needs: No Data to Display PFSH All Active Problems (Updated 05/31/24 @ 17:08 by Elham Junior MD) Migraine with aura (Acute) Osteoarthritis, hip, bilateral (Acute) Trochanteric bursitis of both hips (Acute) Bilateral injection: 11/14/2023 Abnormal FSH level (Acute) Hypertension (Chronic) Menorrhagia (Acute) DUB (dysfunctional uterine bleeding) (Acute) Left carpal tunnel syndrome (Acute) History of exploratory laparotomy (Acute) Exploratory laparotomy for ruptured ectopic , age 21 Thyroid dysfunction (Acute) Abnormal uterine bleeding (Acute) Uterine fibroid (Acute) Hyperplastic colon polyp (Acute) New onset seizure (Acute) History of atypical migraine (Acute) Hyperlipidemia (Acute) Bilateral carotid artery stenosis (Acute) Prediabetes (Acute) Rosacea (Acute) Gout (Chronic) Cubital tunnel syndrome on left (Acute) Medical History Migraine headache with aura Abnormal colonoscopy Hx of seizure disorder Per pt. states she see a neurologist saw Dr. Yates states it was brought on from a migraine. Per pt. states it was a 30 second LOC seizure w/ convulsions, loss of bladder function, Last seizure 09/26/2020. Currently managed on medication. Seasonal allergies Thyroiditis Hemiplegic migraine Actinic keratoses Surgical History Right carpal tunnel syndrome S/P R ECTR: 08/12/2021 Social History Smoking/Tobacco Use Status: Former Tobacco Use Quit Date: 03/28/15 Smoking risk assessment performed?: Yes Alcohol Intake: current Alcohol Intake frequency: 0-2 drinks per day Alcohol type: beer, wine and hard liquor Drug use: Never Substance use type: does not use Do you feel safe at home: Yes Do you feel safe in your relationship?: Yes
== END 2024-05-31 17:30 | disposition home or self-care (01) ==
PROVIDERS: Emergency Provider Emergency Medicine Emergency Medical Services; PCP Physician Assistant
DX: G43.109 Migraine with aura, not intractable, without status migrainosus (principal); R20.0 Anesthesia of skin; Z79.82 Long term (current) use of aspirin; Z79.899 Other long term (current) drug therapy; Z87.891 Personal history of nicotine dependence
CPT/HCPCS: 82962; 99283

== ENCOUNTER 2024-06-18 01:49 | Outpatient (CLI) | payer MEDICAID, SELFPAY ==
--- NOTE | 2024-06-18 | DI.US_ITS ---
Exam(s) US THYROID EXAM: US THYROID CLINICAL HISTORY: MULTINODULAR GOITER E04.2 FU FROM 11/22/23. TECHNIQUE: Ultrasound thyroid performed using standard protocol. COMPARISON: US US THYROID from 11/22/2023 FINDINGS: Both thyroid lobes as well as the isthmus again exhibit normal size. There is a single finding again noted each lobe. RIGHT THYROID LOBE: Measures 1.5 cm AP x 1.6 cm wide x 3.8 cm craniocaudal With respect to the small nodule, it presently appears cystic, measuring 0.2 x 0.2 x 0.2 cm Composition: Cystic-0 points Echogenicity: Anechoic-0 points Shape: Wider than taller-0 points Margin: Smooth- 0 points Echogenic Foci: None-0 points Total Points for this nodule: 0 ACR Ti-Rads Category: TR1 This does not require biopsy ISTHMUS: Normal thickness. There are no nodules in the isthmus. LEFT THYROID LOBE: Measures 1.2 cm AP x 1.4 wide x 3.4 cm craniocaudal Previously described solitary nodule in the left lobe again exhibits minimal if any significant jackson e and presently measures 0.6 x 0.4 x 0.5 cm Characteristics of this nodule are as follows: Composition: Solid-2 points Echogenicity: Hypo echo-2 points Shape: Wider than taller in the transverse plane-0 points Margin: Smooth-0 points Echogenic Foci: None-0 points Total points for this nodule: 4 ACR Ti-Rads Category: 4 This TR 4 level nodule does not require biopsy as it measures less than 1.5 cm LYMPH NODES: There is no significant adenopathy. IMPRESSION: 1. Single finding in each lobe, appearing to be a small 2 mm benign cyst in the right lobe and a guillermo tary unchanged TR 4 level nodule in the left lobe which does not require biopsy as it measures less t hester 1.5 cm. 2. No new nodules evident in either lobe nor within the isthmus. 3. There is no significant lymphadenopathy. DATA REPOSITORY:
== END 2024-06-18 02:09 ==
LOC: DI 01:49
PROVIDERS: PCP Physician Assistant; Visit Provider Physician Assistant
DX: E04.2 Nontoxic multinodular goiter (principal)
CPT/HCPCS: 76536

== ENCOUNTER 2024-07-14 15:35 | Emergency (ER) | payer MEDICAID, SELFPAY ==
[2024-07-14] VITALS (49 sets, daily range): BP systolic 132–161; BP diastolic 63–98; PULSE 77–108; RESP 15–28; TEMP 36.9; O2SAT 92–98
--- NOTE | 2024-07-14 15:30 | RT.EKG_ITS ---
APPROVED REPORT Exam: Resting ECG Reason for Exam: syncope Patient Location: E HR:90 bpm ECG Measurements Heart Rate 90 AXIS OR 129 P 34 QRSd 78 QRS 63 QT 361 T 56 QTc 442 Conclusion Sinus rhythm...normal P axis, V-rate 60- [address] segment or T wave abnormalities to suggest occlusive AK
--- NOTE | 2024-07-14 16:15 | DI.RAD_ITS ---
Exam(s) XR CHEST 2V PA LATERAL EXAM: XR CHEST 2V PA LATERAL CLINICAL HISTORY: cough, seizure. TECHNIQUE: 2D digital imaging was performed. COMPARISON: No exams were available for comparison FINDINGS: 2 views: Heart size is normal. The mediastinum is not widened. Lungs are clear. No infiltrates nor pleural effusions. No fractures evident. Some degenerative changes are evident in the right AC joint. IMPRESSION: No acute pulmonary findings. DATA REPOSITORY: RADIATION DOSE DELIVERED:
--- NOTE | 2024-07-14 16:15 | DI.RAD_ITS ---
Exam(s) XR ANKLE RT COMPLETE EXAM: XR ANKLE RT COMPLETE CLINICAL HISTORY: injury. TECHNIQUE: 2D digital imaging was performed. COMPARISON: No exams were available for comparison FINDINGS: Three views There is oblique fracture at the midshaft of the fibula partially included in the field of view. Als o suspicious for fracture of the posterior malleolus in the distal tibia. There is no widening of th e ankle mortise. Talar dome unremarkable. No osseous lesions. IMPRESSION: Fractures as above. DATA REPOSITORY: RADIATION DOSE DELIVERED:
[2024-07-14 16:24] LABS: Abs Immature Grans 0.02 10^3/uL (0.0-0.06); Absolute Basophil Count 0.07 10^3/uL (0.0-0.2); Absolute Eosinophil Count 0.02 10^3/uL (0.0-0.7); Absolute Lymphocyte Count 0.71 10^3/uL (1.2-3.4); Absolute Monocyte Count 1.33 10^3/uL (0.1-0.8); Absolute Neutrophil Count 4.76 10^3/uL (1.2-6.7); Eosinophils % 0.3 %; HCT 40.1 % (36.0-46.0); HGB 13.5 g/dL (11.2-15.7); Immature Grans % 0.3 %; Lymphocytes % 10.3 %; MCH 30.9 pg (27.0-33.0); MCHC 33.7 % (32.0-36.0); MCV 92 fL (80-95); MPV 9.6 fL (8.0-11.0); Monocytes % 19.2 %; Neutrophils % 68.9 %; Platelet Count 276 10^3/uL (130-400); RBC 4.37 10^6/uL (3.93-5.22); RDW 13.2 % (11.7-14.6); RDW-SD 44.8 fL; WBC 6.91 10^3/uL (4.4-10.8)
[2024-07-14] MEDS: levETIRAcetam 500 MG in Normal Saline 100 ML 400 MG IVPB (16:45)
[2024-07-14] MEDS: Normal Saline 1,000 ML 1000 ML IV (16:46)
[2024-07-14] MEDS: Prochlorperazine 10 MG/2 ML VIAL IVP (16:46)
[2024-07-14 16:48] LABS: ALT 57 U/L (14-59); AST 43 U/L (15-37); Albumin 3.5 g/dL (3.4-5.0); Alkaline Phosphatase 29 U/L (46-116); BUN 16 mg/dL (7-18); Bilirubin, Total 0.2 mg/dL (0.2-1.0); CREATININE 0.9 mg/dL (0.55-1.02); Calcium 8.5 mg/dL (8.5-10.1); Chloride 102 mmol/L (98-107); Estimated GFR 74.57 (mL/min/1.73m2); Glucose 88 mg/dL (74-106); Magnesium 2.2 mg/dL (1.8-2.4); Potassium 4.2 mmol/L (3.5-5.1); Sodium 138 mmol/L (136-145); TSH (W/Ref FT4) 4.57 uIU/mL (0.36-3.74); Total Protein 7.3 g/dL (6.4-8.2)
[2024-07-14 17:09] LABS: FREE T4 0.55 ng/dL (0.76-1.46)
[2024-07-14 17:31] LABS: Bilirubin Negative (Negative); Blood Moderate (Negative); Clarity Clear (Clear); Glucose Negative (Negative); Ketones Negative (Negative); Leukocyte Esterase Negative (Negative); Nitrite Negative (Negative); Specific Gravity 1.015 (1.005-1.025); Urobilinogen 0.2 mg/dL (Up to 0.2)
--- NOTE | 2024-07-14 17:37 | DI.RAD_ITS ---
Exam(s) XR TIB/FIB RT EXAM: XR TIB/FIB RT CLINICAL HISTORY: ankle fx, eval for prox tib fib fx. TECHNIQUE: 2D digital imaging was performed. COMPARISON: No exams were available for comparison FINDINGS: Two views There is a mildly displaced comminuted fracture just distal to the mid aspect of the fibula. There a lso appears to be a fracture of the posterior aspect of the distal tibia at the ankle level-posterior malleolus region. There are no fractures higher up in the tibia including the tibial plateau nor wi thin the fibular head and neck. IMPRESSION: Midshaft fracture of the fibula. Posterior malleolus region fracture of the distal tibia. DATA REPOSITORY: RADIATION DOSE DELIVERED:
[2024-07-14 17:40] LABS: Bacteria Rare HPF (Negative); C & S Indicated? No; Casts 3-5 Hyaline LPF (Negative); Crystals Negative HPF (Negative); Epithelial Cells Few HPF (Negative); Mucus Trace (Negative); WBC 0-2 HPF (0-5)
[2024-07-14] MEDS: MORPHine 10 MG/ML VIAL 6 MG IVP ×2 (18:25→20:44)
--- NOTE | 2024-07-14 20:00 | DI.RAD_ITS ---
Exam(s) XR ANKLE RT 2V EXAM: XR ANKLE RT 2V CLINICAL HISTORY: fracture, pain post splint. TECHNIQUE: 2D digital imaging was performed. COMPARISON: CR XR ANKLE RT COMPLETE from 07/14/2024 FINDINGS: Two post closed reduction in fiberglass splint views: Posterior malleolus fractures again noted. Partially visualized midshaft fibular fracture noted. IMPRESSION: As above. DATA REPOSITORY: RADIATION DOSE DELIVERED:
--- NOTE | 2024-07-14 20:00 | DI.RAD_ITS ---
Exam(s) XR TIB/FIB RT EXAM: XR TIB/FIB RT CLINICAL HISTORY: post splint. TECHNIQUE: 2D digital imaging was performed. COMPARISON: CR XR TIB/FIB RT from 07/14/2024 FINDINGS: Two in splint views CT of the right tibia-fibula The slightly below midshaft fracture of the fibula appears unchanged from earlier same date and there is a posterior malleolus fracture at the level the ankle again noted. Minimal displacement at this level. No new fractures. IMPRESSION: As above. DATA REPOSITORY: RADIATION DOSE DELIVERED:
--- NOTE | 2024-07-14 21:03 | DI.VRAD_ITS ---
PROCEDURE INFORMATION: Exam: XR Right Tibia and Fibula Exam date and time: 07/14/2024 8:34 PM Age: 59 years old Clinical indication: Pain; Lower leg; Right; Post splint TECHNIQUE: Imaging protocol: Radiologic exam of the right tibia and fibula. Views: 2 views. COMPARISON: CR XR TIB/FIB RT 07/14/2024 5:36 PM FINDINGS: Tubes, catheters and devices: Fiberglass splint in position. Bones/joints: Mid fibular fracture at the level of the diaphysis and distal diametaphyseal region. Mild comminution. Minor displacement of the central fragment with posterior 8 mm distraction. There are features suggesting a fracture of the posterior tibial malleolus. 1 mm distraction. There is a small calcification adjacent to the tip of the medial malleolus that may represent a minor avulsion related to the medial tibiotalar ligament. Soft tissues: Mild swelling. IMPRESSION: 1. Mid fibular, posterior malleolar, and medial malleolar tip fractures as described above. 2. Fiberglass splint in place. Dictated and Authenticated by: Adrian Ibarra MD. Orderin Nadia Guzmán MD
--- NOTE | 2024-07-14 21:05 | DI.VRAD_ITS ---
PROCEDURE INFORMATION: Exam: XR Right Ankle Exam date and time: 07/14/2024 8:32 PM Age: 59 years old Clinical indication: Pain; Ankle; Right; Post splint TECHNIQUE: Imaging protocol: Radiologic exam of the right ankle. Views: 1 or 2 views. COMPARISON: CR XR ANKLE RT COMPLETE 07/14/2024 5:24 PM FINDINGS: Tubes, catheters and devices: Posterior fiberglass splint in position. Bones/joints: Posterior tibial malleolus fracture. This corner fracture is distracted 3-4 mm. There is a fracture seen of the fibular distal diametaphyseal region. Better appreciated on dedicated tib-fib series. A small fragment adjacent to the tip of the medial malleolus measuring 2-3 mm is consistent with a minor avulsion fracture. Ankle mortise is in alignment. Soft tissues: Soft tissue swelling. IMPRESSION: Fractures as described above. Posterior fiberglass splint in position. Dictated and Authenticated by: Adrian Ibarra MD. Orderin Nadia Guzmán MD
--- NOTE | 2024-07-14 21:07 | ED.GENADUL_ITS ---
Discharge Plan Disposition Patient Disposition: Home Condition: Stable Discharge Details Clinical Impression: Seizure, Ankle fracture, right, Fibula fracture Primary Care Provider: Celeste Barcenas ED Provider: Arielle Zuniga Home Meds and New Rx's Prescriptions: New morphine 15 mg tablet 15 mg PO Q8H PRNQty: 12 0RF Continued turmeric-turmeric ext-pepper 500-3 mg capsule 1 cap PO DAILY Ultra CoQ10 75 mg capsule 75 mg PO DAILY sumatriptan succinate [Imitrex] 50 mg tablet See Rx Instructions PO .COMPLEX Rx Instructions: take 1 tab at onset of headache; if no relief may repeat 1 tab after at least 2 hrs; max = 4 tabs/24 hr PO aspirin 81 mg tablet,delayed release (DR/EC) 81 mg PO DAILY norethindrone acetate 5 mg tablet 5 mg PO .COMPLEX Qty: 120 3RF Rx Instructions: 5 mg orally Every 6 hours until the bleeding stops then resume twice daily dosing; amlodipine 2.5 mg tablet 2.5 mg PO DAILY Fish Oil 120-180 mg capsule 1 cap PO DAILY ferrous sulfate [FeroSul] 325 mg (65 mg iron) tablet 325 mg PO DAILY Lumigan 0.01 % drops 1 drp ophthalmic (eye) QPM alprazolam 0.5 mg tablet 0.5 mg PO ONCE PRN (Reason: Claustrophobia) Qty: 2 0RF Rx Instructions: Take 1 60 minutes prior to MRI. May take an additional 1 if still anxious 30 mins prior to MRI. norethindrone acetate [Gallifrey] 5 mg tablet See Rx Instructions .ROUTE .COMPLEX Qty: 360 1RF Dose Instruction: TAKE TWO TABLETS BY MOUTH TWICE A DAY Rx Instructions: TAKE TWO TABLETS BY MOUTH TWICE A DAY levetiracetam 500 mg tablet 250 mg PO BID multivitamin [Daily Multi-Vitamin] 1 EACH tablet 1 tab PO DAILY magnesium 200 MG tablet 1 tab PO DAILY cholecalciferol (vitamin D3) [Vitamin D3] 2,000 UNIT capsule 1 tab PO DAILY Repatha Pushtronex 420 mg/3.5 mL wearable injector 420 mg SUBCUT QMONTH Patient Comments: INJECT 3.5ML SUBCUTANEOUSLY ONCE A MONTH acetaminophen 500 mg tablet 500 mg PO Q6H PRN PRN (Reason: pain) Qty: 40 3RF ibuprofen 600 mg tablet 600 mg PO TID PRN (Reason: pain) Qty: 30 3RF Discharge Instructions Instructions: Seizures, Lower Leg Fracture ED, How to care for your cast Additional Instructions: Increase your Keppra to 500 mg twice daily, call your neurologist on Tuesday Have your doctor review your thyroid level at your next appointment it is ever so slightly elevated but nothing you should concern yourself with today You have a small amount of blood on your urinalysis you should also have this rechecked by your doctor Take Motrin and Tylenol as needed for pain, with persistent pain uncontrolled with Motrin and Tylenol you may take morphine, this medication can be addictive and make you constipated Use crutches with ambulation and elevate your foot whenever you are seated, you may apply ice over the top of the foot, should you develop worsening pain or numbness or tingling you should be reevaluated immediately call Dr. Godinez's office on Tuesday as you will need surgery this week if they are unable to see you this week, it sounds like [facility] will be calling you Tuesday to schedule surgery Referrals: Timothy Godinez MD [ [facility] STAFF PHYSICIAN] - 1 day HPI General Date/Time Provider Initiated Documentation: 07/14/24 15:36 . HPI Narrative: The patient is a 59-year-old female who presents after an unwitnessed alteration of mental status. She was found in the bathroom unresponsive with seizure history. She was reportedly laying on the corner of the floor and was unable to ambulate. She is unsure if she had an aura for which she took her migraine medication. Migraines are not unusual. She was decreasing her Keppra from 500 down to 250 and did take her Keppra today. She now feels drowsy, has had a bronchospastic cough for the past couple of weeks, but she has been doing some work at her parents' house and she feels like there is mold and it is likely causing her to have some allergies. She does not report any chest pain or shortness of breath. She does not report any dizziness or weakness. She does not report any nausea or vomiting, fever, chills or urinary symptoms. She drinks alcohol several times a week and does not report any history of alcohol withdrawals. She was found in the bathroom unresponsive with a history of seizures. She was reportedly laying on the corner of the floor and was unable to ambulate. She is unsure if she had an aura for which she took her migraine medication. Migraines are not unusual for her. She was decreasing her Keppra from 500 down to 250 and did take her Keppra today. She now feels drowsy. Related Data Home Medications ?Medication ?Instructions ?Recorded ?Confirmed cholecalciferol (vitamin D3) 50 1 tab PO DAILY 03/20/13 07/14/24 mcg (2,000 unit) capsule (Vitamin D3) magnesium 200 mg tablet 1 tab PO DAILY 03/20/13 07/14/24 multivitamin (Daily Multi-Vitamin 1 tab PO DAILY 03/20/13 07/14/24 tablet) sumatriptan succinate 50 mg tablet See Rx Instructions PO .COMPLEX 03/05/20 07/14/24 (Imitrex) aspirin 81 mg tablet,delayed 81 mg PO DAILY 05/27/21 07/14/24 release turmeric 500 mg-black pepper 1 cap PO DAILY 07/27/21 07/14/24 extract 3 mg capsule acetaminophen 500 mg tablet 500 mg PO Q6H PRN PRN pain #40 tabs 08/12/21 07/14/24 ibuprofen 600 mg tablet 600 mg PO TID PRN pain #30 tabs 08/12/21 07/14/24 coenzyme Q10 75 mg capsule (Ultra 75 mg PO DAILY 05/21/22 07/14/24 CoQ10) evolocumab 420 mg/3.5 mL 420 mg subcut QMONTH 05/13/23 07/14/24 subcutaneous wearable injector (Repatha Pushtronex) norethindrone acetate 5 mg tablet 5 mg PO .COMPLEX #120 tabs 08/16/23 07/14/24 amlodipine 2.5 mg tablet 2.5 mg PO DAILY 08/30/23 07/14/24 bimatoprost 0.01 % eye drops 1 drp ophthalmic (eye) QPM 08/30/23 07/14/24 (Jet) docosahexaenoic acid (dha)-epa 120 1 cap PO DAILY 08/30/23 07/14/24 mg-180 mg capsule (Fish Oil) ferrous sulfate 325 mg (65 mg 325 mg PO DAILY 08/30/23 07/14/24 iron) tablet (FeroSul) alprazolam 0.5 mg tablet 0.5 mg PO ONCE PRN Claustrophobia 12/23/23 07/14/24 #2 tabs norethindrone acetate 5 mg tablet See Rx Instructions .Route 04/17/24 07/14/24 (Uriel) .COMPLEX #360 tabs levetiracetam 500 mg tablet 250 mg PO BID 05/08/24 07/14/24 morphine 15 mg immediate release 15 mg PO Q8H PRN #12 tabs 07/14/24 tablet Previous Rx's ?Medication ?Instructions ?Recorded acetaminophen 500 mg tablet 500 mg PO Q6H PRN PRN pain #40 tabs 08/12/21 ibuprofen 600 mg tablet 600 mg PO TID PRN pain #30 tabs 08/12/21 norethindrone acetate 5 mg tablet 5 mg PO .COMPLEX #120 tabs 08/16/23 alprazolam 0.5 mg tablet 0.5 mg PO ONCE PRN Claustrophobia 12/23/23 #2 tabs norethindrone acetate 5 mg tablet See Rx Instructions .Route 04/17/24 (Uriel) .COMPLEX #360 tabs morphine 15 mg immediate release 15 mg PO Q8H PRN #12 tabs 07/14/24 tablet Allergies Allergy/AdvReac Type Severity Reaction Status Date / Time amoxicillin Allergy Intermediate none noted Verified 07/14/24 15:53 on referral mold Allergy Intermediate Other (See Verified 07/14/24 15:53 Comment) Penicillins Allergy Mild Skin Rash Verified 07/14/24 15:53 General Stated Complaint: AMS/LOC ANGE: 5 Exam Narrative Exam Narrative: General Appearance: Alert and oriented, no acute distress. Vital signs: Within normal limits. HEENT: Lesion on left side of tongue consistent with bite flower. Pupils equal, round, reactive to light and accommodation. No hemotympanum. Respiratory: Within normal limits. Back, Musculoskeletal: No cervical spine, chest wall, or abdominal tenderness. Mild tenderness at proximal knee. No hip, foot, or shoulder tenderness bilaterally. Extremities: Right ankle and midshaft swelling. Skin: Warm and dry, no rash. Neurological: Neurovascularly intact. Cranial nerves II-XII intact. Follows basic commands. Negative [id number] and heel donohue tests. Course Vital Signs Vital signs: Vital Signs Temperature 36.9 C 07/14/24 15:34 Pulse 97 H 07/14/24 15:34 Respiratory Rate 18 07/14/24 15:34 Blood Pressure 136/72 07/14/24 15:34 Pulse Oximetry 97 07/14/24 15:34 Temperature 36.9 C 07/14/24 15:34 Temperature Source Oral 07/14/24 15:34 Pulse 86 07/14/24 20:20 Pulse 87 07/14/24 20:20 Respiratory Rate 24 07/14/24 20:20 Respiratory Effort Normal, Non-Labored, Short of Breath 07/14/24 16:58 Respiratory Depth Normal 07/14/24 16:58 Respiratory Pattern Normal 07/14/24 16:58 Blood Pressure 160/76 H 07/14/24 19:16 Blood Pressure Mean 102 07/14/24 19:16 Pulse Oximetry 95 07/14/24 20:20 Oxygen Delivery Method Room Air 07/14/24 15:34 Oxygen Flow Rate 0 07/14/24 15:34 Lab/Test Results Lab/Test Results: Laboratory Tests Range/Units 07/14/24 07/14/24 15:48 17:15 WBC (4.4-10.8) 10^3/uL 6.91 RBC (3.93-5.22) 10^6/uL 4.37 Hgb (11.2-15.7) g/dL 13.5 Hct (36.0-46.0) % 40.1 MCV (80-95) fL 92 MCH (27.0-33.0) pg 30.9 MCHC (32.0-36.0) % 33.7 RDW (11.7-14.6) % 13.2 Plt Count (130-400) 10^3/uL 276 MPV (8.0-11.0) fL 9.6 Immature Gran % % 0.3 Neutrophils % % 68.9 Lymphocytes % % 10.3 Monocytes % % 19.2 Eosinophils % % 0.3 Basophils % % 1.0 Nucleated RBC % (0.0-0.3) % 0.0 Absolute Neutrophils (1.2-6.7) 10^3/uL 4.76 Absolute Lymphocytes (1.2-3.4) 10^3/uL 0.71 L Absolute Monocytes (0.1-0.8) 10^3/uL 1.33 H Absolute Eosinophils (0.0-0.7) 10^3/uL 0.02 Absolute Basophils (0.0-0.2) 10^3/uL 0.07 Sodium (136-145) mmol/L 138 Potassium (3.5-5.1) mmol/L 4.2 Chloride (98-107) mmol/L 102 Carbon Dioxide (21.0-32.0) mmol/L 25.0 Anion Gap (3-11) mmol/L 11.0 BUN (7-18) mg/dL 16 Creatinine (0.55-1.02) mg/dL 0.9 Est GFR (CKD-EPI 2020) (mL/min/1.73m2) 74.57 Glucose (74-106) mg/dL 88 Calcium (8.5-10.1) mg/dL 8.5 Magnesium (1.8-2.4) mg/dL 2.2 Total Bilirubin (0.2-1.0) mg/dL 0.2 AST (15-37) U/L 43 H ALT (14-59) U/L 57 Alkaline Phosphatase (46-116) U/L 29 L Total Protein (6.4-8.2) g/dL 7.3 Albumin (3.4-5.0) g/dL 3.5 TSH (0.36-3.74) uIU/mL 4.57 H Free T4 (0.76-1.46) ng/dL 0.55 L Urine Color (Yellow) Yellow Urine Clarity (Clear) Clear Urine pH (5-8) 6.0 Ur Specific [place] (1.005-1.025) 1.015 Urine Protein (Neg-Trace) mg/dL >=300 H Urine Ketones (Negative) mg/dL Negative Urine Blood (Negative) Moderate H Urine Nitrite (Negative) Negative Urine Bilirubin (Negative) Negative Urine Urobilinogen (Up to 0.2) mg/dL 0.2 Ur Leukocyte Esterase (Negative) Negative Urine RBC (0-2) HPF 3-5 H Urine WBC (0-5) HPF 0-2 Ur Epithelial Cells (Negative) HPF Few Urine Crystals (Negative) HPF Negative Urine Bacteria (Negative) HPF Rare Urine Casts (Negative) LPF 3-5 Hyaline Urine Mucus (Negative) Trace Ur Culture Indicated? No Urine Glucose (Negative) mg/dL Negative Medical Decision Making CT scan from earlier this year nonacute. Chest X-ray shows no acute abnormality. Midshaft fibular fracture of posterior malleolus, likely unstable. Initial Assessment: 59-year-old female with unwitnessed alteration of mental status, found unresponsive in bathroom with seizure history. Reports bronchospastic cough likely due to mold exposure, no chest pain, shortness of breath, dizziness, weakness, nausea, vomiting, fever, chills, or urinary symptoms. Drinks alcohol several times a week, no history of alcohol withdrawals. On arrival, alert and oriented, no acute distress, lesion to tongue consistent with bite flower, pupils equal, round, reactive to light and accommodation, follows basic commands, no hemotympanum, no cervical spine tenderness, no chest wall tenderness, no abdominal tenderness, neurovascularly intact, right ankle and mid shaft with swelling, mild tenderness at proximal knee, no tenderness to hip or foot, no tenderness to shoulders bilaterally, cranial nerves II through XII intact, negative [id number], negative heel donohue. ED Course: - Reviewed prior medical history and EEG; no indication for CT imaging. - Patient had a migraine prior to the fall, not worsened. - Reviewed CT scan from earlier this year, nonacute. - Chest X-ray showed no acute abnormalities. - Midshaft fibular fracture of posterior malleolus identified, suggesting instability. - No reproduction specialist paper control clerk; recommended repeat films post-splinting. - Applied posterior sugar-tong splint to right lower extremity, remained neurovascularly intact. - Orthopedics suggested dorsiflexing ankle more. - Patient stable for outpatient orthopedic follow-up. - Referral placed; [facility] will contact if unavailable, waited 2.5 hours to speak with [facility] as our ortho unavailable, spoke with [facility] - Surgery necessary this week. - Administered Morphine IR for pain; discussed addiction risk. - No seizures observed. - Increased Keppra to 500 mg twice daily. - Vital signs stable. - Discharged home with crutches. - Reviewed return precautions. - No evidence of compartment syndrome. Final Assessment: Patient presented with alteration of mental status and seizure history. Imaging and labs reviewed, no acute findings. Managed midshaft fibular fracture with splinting, stable for outpatient follow-up. Increased Keppra dosage, administered Morphine IR for pain, and discharged with crutches. Clinical Impression: - Alteration of mental status - Midshaft fibular fracture - Seizure history - Bronchospastic cough Disposition: - Discharged home with crutches - Referral to orthopedics for follow-up - [facility] to contact if unavailable [facility] Components Evaluation: - Number of Differential Diagnoses or Management Options: Alteration of mental status, midshaft fibular fracture, seizure history, bronchospastic cough - Amount and Complexity of Data Reviewed: Prior medical history, EEG, CT scan, chest X-ray, orthopedic consultation - Risk of Complication and Morbidity or Mortality: Risk of seizure recurrence, potential complications from fibular fracture, risk of addiction from Morphine IR Quality:SDOH Health Related Social Needs: No Data to Display PFSH All Active Problems (Updated 07/14/24 @ 22:02 by DHRUV Vidal) Fibula fracture (Acute) Ankle fracture, right (Acute) Seizure (Acute) Osteoarthritis, hip, bilateral (Acute) Trochanteric bursitis of both hips (Acute) Bilateral injection: 11/14/2023 Abnormal FSH level (Acute) Hypertension (Chronic) Menorrhagia (Acute) DUB (dysfunctional uterine bleeding) (Acute) Left carpal tunnel syndrome (Acute) History of exploratory laparotomy (Acute) Exploratory laparotomy for ruptured ectopic , age 21 Thyroid dysfunction (Acute) Abnormal uterine bleeding (Acute) Uterine fibroid (Acute) Hyperplastic colon polyp (Acute) New onset seizure (Acute) History of atypical migraine (Acute) Hyperlipidemia (Acute) Bilateral carotid artery stenosis (Acute) Prediabetes (Acute) Rosacea (Acute) Gout (Chronic) Cubital tunnel syndrome on left (Acute) Medical History Migraine headache with aura Abnormal colonoscopy Hx of seizure disorder Per pt. states she see a neurologist saw Dr. Yates states it was b rought on from a migraine. Per pt. states it was a 30 second LOC seizure w/ convulsions, loss of bladder function, Last seizure 09/26/2020. Currently managed on medication. Seasonal allergies Thyroiditis Hemiplegic migraine Actinic keratoses Surgical History Right carpal tunnel syndrome S/P R ECTR: 08/12/2021 Social History Smoking/Tobacco Use Status: Former Tobacco Use Quit Date: 03/28/15 Smoking risk assessment performed?: Yes Alcohol Intake: current Alcohol Intake frequency: 0-2 drinks per day Alcohol type: beer, wine and hard liquor Drug use: Never Substance use type: does not use Do you feel safe at home: Yes Do you feel safe in your relationship?: Yes
[2024-07-14] MEDS: MORPHine IR 15 MG TAB, 4 TABS/BTL PO (22:16)
--- NOTE | 2024-07-15 13:38 | NUR.NOTE ---
Access chart to get the discharge diagnosis for [facility] billing requisition. Nursing Note:
== END 2024-07-14 22:46 | disposition home or self-care (01) ==
PROVIDERS: Emergency Provider Physician Assistant; PCP Physician Assistant
DX: S82.891A Other fracture of right lower leg, initial encounter for closed fracture (principal); S82.401A Unspecified fracture of shaft of right fibula, initial encounter for closed fracture; R56.9 Unspecified convulsions; W19.XXXA Unspecified fall, initial encounter; R41.82 Altered mental status, unspecified
CPT/HCPCS: 36416; 80053; 82962; 93005; 96361; 96365; 96375; 96376; 99284; 71046; 73590; 73600; 73610; 81003; 81015; 83735; 84439; 84443; 85025; 93010; J0780; J1953; J2270

== ENCOUNTER 2024-07-17 10:20 | Outpatient (CLI) | payer MEDICAID, SELFPAY ==
--- NOTE | 2024-07-17 10:11 | DI.RAD_ITS ---
Exam(s) XR ANKLE RT COMPLETE EXAM: XR ANKLE RT COMPLETE CLINICAL HISTORY: fracture follow up. TECHNIQUE: 2D digital imaging was performed of the right ankle. Five images were obtained. AP, lat eral and oblique views were obtained. COMPARISON: CR,XR XR ANKLE RT 2V from 07/14/2024 CR XR ANKLE RT COMPLETE from 07/14/2024 FINDINGS: BONES: The comminuted fracture of the mid fibula appears stable in alignment. There is also a tool crib supervisor ior malleolar fracture again seen. There is a well corticated osseous density at the tip of the medi al malleolus. No bony destructive lesion is seen. There is an enthesophyte at the posterior calcaneu s. There is a plantar calcaneal spur. JOINTS: The ankle mortise is normally aligned. SOFT TISSUE: Normal. The patient's lower leg is in a cast. IMPRESSION: Stable fractures involving both the right fibula and the posterior malleolus. DATA REPOSITORY: RADIATION DOSE DELIVERED:
== END 2024-07-17 10:21 | disposition home or self-care (01) ==
LOC: DIORS 10:20
PROVIDERS: PCP Physician Assistant; Visit Provider Physician Assistant
DX: S82.891A Other fracture of right lower leg, initial encounter for closed fracture (principal); S82.851A Displaced trimalleolar fracture of right lower leg, initial encounter for closed fracture
CPT/HCPCS: 73610

== ENCOUNTER 2024-07-24 11:56 | Outpatient (CLI) | payer MEDICAID, SELFPAY ==
--- NOTE | 2024-07-24 10:30 | DI.RAD_ITS ---
Exam(s) XR ANKLE RT COMPLETE EXAM: XR ANKLE RT COMPLETE CLINICAL HISTORY: F/U FRACTURE. TECHNIQUE: 2D digital imaging was performed. Three views. COMPARISON: CR XR ANKLE RT COMPLETE from 07/17/2024 FINDINGS: BONES: No stable alignment mid fibular fracture, mildly displaced. Stable alignment of mildly displa melinda posterior malleolar fracture. Stable small bony density beneath the tip of the medial malleolus no bony destructive lesion is seen. JOINTS: The ankle mortise is normally aligned. SOFT TISSUE: Posterior obscured by posterior splint. IMPRESSION: Stable fracture alignment. DATA REPOSITORY: RADIATION DOSE DELIVERED:
== END 2024-07-24 11:57 | disposition home or self-care (01) ==
LOC: DIORS 11:56
PROVIDERS: PCP Physician Assistant; Visit Provider Student in an Organized Health Care Education/Training Program
DX: S82.851A Displaced trimalleolar fracture of right lower leg, initial encounter for closed fracture (principal); S82.891A Other fracture of right lower leg, initial encounter for closed fracture
CPT/HCPCS: 73610

== ENCOUNTER 2024-08-01 10:58 | Outpatient (CLI) | payer MEDICAID, SELFPAY ==
--- NOTE | 2024-08-01 10:30 | DI.RAD_ITS ---
Exam(s) XR ANKLE RT COMPLETE EXAM: XR ANKLE RT COMPLETE CLINICAL HISTORY: F/U FRACTURE. TECHNIQUE: 2D digital imaging was performed. Three views. COMPARISON: CR XR ANKLE RT COMPLETE from 07/24/2024 FINDINGS: BONES: Stable alignment distal fibular and posterior malleolar fractures. Small bony fragments are again noted at the tip of the medial malleolus. No bony destructive lesion is seen. Heel spurs. JOINTS: The ankle mortise is normally aligned. SOFT TISSUE: Normal. IMPRESSION: Stable fracture alignment. DATA REPOSITORY: RADIATION DOSE DELIVERED:
== END 2024-08-01 10:59 | disposition home or self-care (01) ==
LOC: DIORS 11:59
PROVIDERS: PCP Physician Assistant; Visit Provider Student in an Organized Health Care Education/Training Program
DX: S82.851A Displaced trimalleolar fracture of right lower leg, initial encounter for closed fracture (principal)
CPT/HCPCS: 73610

== ENCOUNTER 2024-08-10 11:08 | Outpatient (REF) | payer MEDICAID, SELFPAY ==
[2024-08-10 19:35] LABS: Hemoglobin A1C 5.3 % (<5.7)
[2024-08-10 20:01] LABS: ALT 34 U/L (14-59); AST 26 U/L (15-37); Albumin 3.8 g/dL (3.4-5.0); Alkaline Phosphatase 39 U/L (46-116); Anion Gap 2.7 mmol/L (3-11); BUN 16 mg/dL (7-18); Bilirubin, Total 0.6 mg/dL (0.2-1.0); CO2 30.3 mmol/L (21.0-32.0); CREATININE 0.7 mg/dL (0.55-1.02); Calcium 9.3 mg/dL (8.5-10.1); Calculated LDL 164 mg/dL (<100); Chloride 103 mmol/L (98-107); Cholesterol 209 mg/dL (<200); Estimated GFR 100.81 (mL/min/1.73m2); Glucose 88 mg/dL (74-106); HDL Cholesterol 26 mg/dL (>or=50); Potassium 5.4 mmol/L (3.5-5.1); Sodium 136 mmol/L (136-145); Total Protein 7.5 g/dL (6.4-8.2); Triglyceride 95 mg/dL (<150); Vitamin B12 322 pg/mL (193-986)
[2024-08-10 20:02] LABS: Folate > 20.0 ng/mL (8.6-20.0)
== END 2024-08-10 11:09 | disposition home or self-care (01) ==
LOC: NCHCN 11:08
PROVIDERS: PCP Physician Assistant; Visit Provider Physician Assistant
DX: G43.409 Hemiplegic migraine, not intractable, without status migrainosus (principal)
CPT/HCPCS: 80053; 80061; 82607; 82746; 83036

== ENCOUNTER 2024-08-21 14:59 | Outpatient (REF) | payer MEDICAID, SELFPAY ==
[2024-08-21 19:32] LABS: Potassium 4.2 mmol/L (3.5-5.1)
== END 2024-08-21 15:00 | disposition home or self-care (01) ==
LOC: NCHCN 14:59
PROVIDERS: PCP Physician Assistant; Visit Provider Physician Assistant
DX: E87.5 Hyperkalemia (principal)
CPT/HCPCS: 84132

== ENCOUNTER 2024-08-22 14:08 | Outpatient (CLI) | payer MEDICAID, SELFPAY ==
--- NOTE | 2024-08-22 10:30 | DI.RAD_ITS ---
Exam(s) XR ANKLE RT COMPLETE EXAM: XR ANKLE RT COMPLETE CLINICAL HISTORY: F/U FRACTURE. TECHNIQUE: 2D digital imaging was performed. Three views. COMPARISON: CR XR ANKLE RT COMPLETE from 07/14/2024 CR XR ANKLE RT COMPLETE from 08/01/2024 FINDINGS: BONES: Stable alignment distal fibular fracture. The posterior malleolar fracture remains nondisplac ed. No bony destructive lesion is seen. JOINTS: The ankle mortise is normally aligned. SOFT TISSUE: Normal. IMPRESSION: Stable fracture alignment. DATA REPOSITORY: RADIATION DOSE DELIVERED:
== END 2024-08-22 14:09 | disposition home or self-care (01) ==
LOC: DIORS 14:08
PROVIDERS: PCP Physician Assistant; Referring Provider Physician Assistant; Visit Provider Student in an Organized Health Care Education/Training Program
DX: S82.851A Displaced trimalleolar fracture of right lower leg, initial encounter for closed fracture (principal)
CPT/HCPCS: 73610

== ENCOUNTER 2024-10-03 11:11 | Outpatient (CLI) | payer MEDICAID, SELFPAY ==
--- NOTE | 2024-10-03 10:45 | DI.RAD_ITS ---
Exam(s) XR ANKLE RT COMPLETE EXAM: XR ANKLE RT COMPLETE CLINICAL HISTORY: F/U FRACTURE. TECHNIQUE: 2D digital imaging was performed. Three views. COMPARISON: CR XR ANKLE RT COMPLETE from 08/01/2024 CR XR ANKLE RT COMPLETE from 08/22/2024 FINDINGS: BONES: Stable alignment of the fibular fracture. Some interval increase in healing. Stable alignment of posterior malleolar fracture, nondisplaced. No bony destructive lesion is seen. JOINTS: The ankle mortise is normally aligned. SOFT TISSUE: Normal. IMPRESSION: Stable fracture alignment. Continued healing. DATA REPOSITORY: RADIATION DOSE DELIVERED:
--- NOTE | 2024-10-03 11:30 | DI.RAD_ITS ---
Exam(s) XR KNEE RT 3V AP,LAT,BRIGID EXAM: XR KNEE RT 3V AP,LAT,BRIGID CLINICAL HISTORY: RIGHT KNEE PAIN. TECHNIQUE: 2D digital imaging was performed. Three views. COMPARISON: No exams were available for comparison FINDINGS: BONES: No acute fracture is present. No bony destructive lesion is seen. JOINTS: The knee is normally aligned. No joint effusion is seen. Joint spaces are maintained. SOFT TISSUE: Normal. IMPRESSION: Unremarkable radiographs of the right knee. DATA REPOSITORY: RADIATION DOSE DELIVERED:
== END 2024-10-03 11:12 | disposition home or self-care (01) ==
PROVIDERS: PCP Physician Assistant; Visit Provider Student in an Organized Health Care Education/Training Program
DX: S82.851A Displaced trimalleolar fracture of right lower leg, initial encounter for closed fracture (principal); M25.561 Pain in right knee
CPT/HCPCS: 73562; 73610

== ENCOUNTER 2024-10-26 01:11 | Outpatient (CLI) | payer MEDICAID, SELFPAY ==
--- NOTE | 2024-10-26 06:30 | DI.MRI_ITS ---
Exam(s) MR LOWER JOINT RT WO EXAM: MR LOWER JOINT RT WO CLINICAL HISTORY: R KNEE PAIN, ACUTE MEDIAL TEAR RT KNEE, S83.241A TECHNIQUE: Multiplanar multisequence MRI of the knee was performed. COMPARISON: CR XR KNEE RT 3V AP,LAT,BRIGID from 10/03/2024 FINDINGS: EFFUSION: There is a large joint effusion and Zepeda cyst in the medial popliteal fossa. There is some debris and synovial thickening evident in the Zepeda cyst. There is also fluid noted anterior to the patella consistent with prepatellar bursitis. This is a thin fluid collection in the subcutaneous fat anterior to the patella measures approximately 3 cm wide by 2.6 cm craniocaudal and with maximum thickness of 3-4 mm. MARROW:There is no evidence of fracture nor prominent bone contusion signal. There is mild bone edema in the medial tibial plateau. There are no significant osseous lesions. PATELLOFEMORAL COMPARTMENT: The quadriceps tendon is intact. The patellar ligament is intact. There is very mild intrasubstance signal abnormality in the retropatellar cartilage over the medial facet but there is no evidence of true fissure at this level and no evidence of osteochondral defect nor significant thinning of the retropatellar cartilage.There is no intraosseous signal to suggest recent patellar dislocation. However, there is some signal abnormality in the more posterior aspect of the medial patellar retinaculum as well as overlying subcutaneous edema consistent with partial tearing CRUCIATE LIGAMENTS: The anterior cruciate ligament is intact.The posterior cruciate ligament is intact. MEDIAL COMPARTMENT/MEDIAL MENISCUS: There is a complex tear of the posterior horn of the medial meniscus. There is an oblique tear which violates the inferior articular surface. There is also a tear at the level the root of the posterior horn. There is mild-moderate meniscal extrusion at this level. There is no migration of the meniscus into the para tibial gutter.The anterior horn of the medial meniscus appears intact.. There is mild articular cartilage thinning over the main weight-bearing surface of the medial compartment. There is tiny solitary focus of subarticular edema in the mid aspect of the medial femoral condyle. There is subjacent mild bone contusion signal in the subjacent medial tibial plateau.There are no medial compartment osteophytes. MEDIAL COLLATERAL LIGAMENT: There is abundant fluid seen lateral to the medial collateral ligament and a small amount of intrasubstance fluid between the deep and superficial layers of the MCL, this adjacent to the meniscal tear. There is no prominent meniscocapsular separation. LATERAL COMPARTMENT/LATERAL MENISCUS: There is no evidence of lateral meniscal tear.There are no chondral defects, osteochondral defects, subarticular marrow edema, nor osteophytes evident. ILIOTIBIAL BAND: Intact LATERAL COLLATERAL LIGAMENT COMPLEX: The fibular collateral ligament is intact. The biceps femoris tendon is intact.Popliteus muscle and tendon are intact. IMPRESSION: 1. There is complex tear of the posterior horn of the medial meniscus as described above. There is mild-moderate meniscal extrusion at this level. There is mild intraosseous edema in the subjacent medial tibial plateau. Mild articular cartilage thinning over the medial condyle. The anterior horn of the medial meniscus appears intact. 2. Abundant fluid signal in the region of the medial collateral ligament. There is also a small amount of fluid interposed between the deep and superficial layers of the MCL. However, there is no full-thickness tear of the MCL. 3. Mild contusion signal evident in the retropatellar cartilage over the medial facet but no evidence of significant fissure or osteochondral defect at this level and there is no abnormal intraosseous signal evident in the patella. 4. There are no cruciate ligament tears and there are no significant acute findings in the lateral compartment. Also no abnormal findings in the lateral collateral ligament complex. 5. Significant size joint effusion and there is a prominent Zepeda's cyst in the medial popliteal fossa which measures 5-6 cm craniocaudal length by 2.7 cm AP by 2.6 cm wide. This contains some debris. 6. In addition to soft tissue edema around the knee there also is some focal fluid anterior to the lower patella and upper patellar ligament consistent with prepatellar bursitis. There are no tears of the patellar ligament evident and there is no abnormal intraosseous signal in the patella. DATA REPOSITORY:
== END 2024-10-26 01:31 ==
LOC: DI 01:12
PROVIDERS: PCP Physician Assistant; Visit Provider Student in an Organized Health Care Education/Training Program
DX: S83.241D Other tear of medial meniscus, current injury, right knee, subsequent encounter (principal); X58.XXXD Exposure to other specified factors, subsequent encounter
CPT/HCPCS: 73721

== ENCOUNTER 2024-11-13 09:45 | Outpatient (REF) | payer MEDICAID, SELFPAY ==
[2024-11-13 20:27] LABS: ALT 42 U/L (14-59); AST 34 U/L (15-37); Albumin 3.8 g/dL (3.4-5.0); Alkaline Phosphatase 37 U/L (46-116); Anion Gap 8.2 mmol/L (3-11); BUN 9 mg/dL (7-18); Bilirubin, Total 0.5 mg/dL (0.2-1.0); CO2 27.8 mmol/L (21.0-32.0); Calcium 8.9 mg/dL (8.5-10.1); Calculated LDL 125 mg/dL (<100); Chloride 102 mmol/L (98-107); Cholesterol 169 mg/dL (<200); Estimated GFR 104.63 (mL/min/1.73m2); Glucose 88 mg/dL (74-106); HDL Cholesterol 24 mg/dL (>or=50); Potassium 4.8 mmol/L (3.5-5.1); Sodium 138 mmol/L (136-145); Total Protein 7.4 g/dL (6.4-8.2); Triglyceride 104 mg/dL (<150)
== END 2024-11-13 09:46 | disposition home or self-care (01) ==
LOC: NCHCN 09:45
PROVIDERS: PCP Physician Assistant; Visit Provider Physician Assistant
DX: E78.5 Hyperlipidemia, unspecified (principal)
CPT/HCPCS: 80053; 80061

== ENCOUNTER 2024-12-26 03:31 | Outpatient (CLI) | payer MEDICAID, SELFPAY ==
--- NOTE | 2024-12-26 09:00 | DI.US_ITS ---
Exam(s) US CAROTID EXAM: US CAROTID CLINICAL HISTORY: OCCLUSION STENOSIS CAROTID ARTERY I65.29. TECHNIQUE: Ultrasound carotids performed using grayscale, color-flow, and spectral Doppler imaging. COMPARISON: US US CAROTID from 01/11/2023 FINDINGS: RIGHT CAROTID ARTERY: Plaque: No plaque is visible. Velocity elevation: None. LEFT CAROTID ARTERY: Plaque: No plaque is visible. Velocity elevation: None. VERTEBRAL ARTERIES: Antegrade flow. Measurements: R Bulb: 80.2cm/s PS / 23.2cm/s ED R CCA: 84.1cm/s PS / 23.2cm/s ED R ECA: 105.1cm/s PS / 23cm/s ED R ICA Prox: 68.1cm/s PS / 16.7cm/s ED R ICA Mid: 73.4cm/s PS / 22.5cm/s ED R ICA Distal: 80.3cm/s PS /24.8cm/s ED R Vert: 71.8cm/s PS / 15.2cm/s ED R SVR: 1 R DVR: 1.1 L Bulb: 74.3cm/s PS / 18.8cm/s ED L CCA: 92.3cm/s PS / 21.2cm/s ED L ECA: 97.8cm/s PS / 21.2cm/s ED L ICA Prox: 75.9cm/s PS / 26.2cm/s ED L ICA Mid: 77.1cm/s PS / 29.8cm/s ED L ICA Distal: 89.1cm/s PS / 29.8cm/s ED L Vert: 55cm/s PS / 16.4cm/s ED L SVR: 1 L DVR: 1.4 IMPRESSION: No evidence for hemodynamically significant carotid stenosis. No visible atherosclerotic plaque. Criteria for Carotid Stenosis: Normal: ICA PSV <125 cm/s no plaque or intimal thickening is visible. <50% stenosis: ICA PSV <125 cm/s and plaque or intimal thickening is visible. 50-69% stenosis: ICA PSV is 125-250 cm/s and plaque is visible. >70% stenosis to near occlusion: ICA PSV >250 cm/s with visible plaque and luminal narrowing. DATA REPOSITORY:
== END 2024-12-26 03:51 ==
LOC: DI 03:31
PROVIDERS: PCP Physician Assistant; Visit Provider Physician Assistant
DX: I65.23 Occlusion and stenosis of bilateral carotid arteries (principal)
CPT/HCPCS: 93880

== ENCOUNTER 2025-01-08 11:41 | Outpatient (CLI) | payer MEDICAID, SELFPAY ==
--- NOTE | 2025-01-08 11:15 | DI.RAD_ITS ---
Exam(s) XR ANKLE RT COMPLETE EXAM: XR ANKLE RT COMPLETE CLINICAL HISTORY: F/U FRACTURE. TECHNIQUE: 2D digital imaging was performed. Three views. COMPARISON: No exams were available for comparison FINDINGS: BONES: Stable alignment of mid to distal fibular fracture. Increased healing with blurring of the fracture margins. Posterior malleolar fracture also shows increased healing. No acute fracture is present. No bony destructive lesion is seen. Heel spurs are again noted. JOINTS: The ankle mortise is normally aligned. SOFT TISSUE: Normal. IMPRESSION: Continued healing of posterior malleolar and fibular fractures. DATA REPOSITORY: RADIATION DOSE DELIVERED:
== END 2025-01-08 11:42 | disposition home or self-care (01) ==
LOC: DIORS 11:42
PROVIDERS: PCP Physician Assistant; Visit Provider Student in an Organized Health Care Education/Training Program
DX: S82.851A Displaced trimalleolar fracture of right lower leg, initial encounter for closed fracture (principal)
CPT/HCPCS: 73610

== ENCOUNTER 2025-02-12 11:49 | Outpatient (REF) | payer MEDICAID, SELFPAY ==
[2025-02-12 19:33] LABS: ALT 53 U/L (10-49); AST 46 U/L (<34); Albumin 4.5 g/dL (3.4-5.0); Alkaline Phosphatase 33 U/L (46-116); Anion Gap 4.4 mmol/L (3-11); BUN 12 mg/dL (9-23); Bilirubin, Total 0.50 mg/dL (0.2-1.2); CO2 26.6 mmol/L (20.0-31.0); Calcium 9.3 mg/dL (8.3-10.6); Chloride 105 mmol/L (98-107); Cholesterol 126 mg/dL (<200); Glucose 88 mg/dL (74-106); HDL Cholesterol 34 mg/dL (>40); Potassium 4.7 mmol/L (3.5-5.1); Sodium 136 mmol/L (136-145); Total Protein 7.4 g/dL (5.7-8.2)
== END 2025-02-12 11:50 | disposition home or self-care (01) ==
LOC: NCHCN 11:49
PROVIDERS: PCP Physician Assistant; Visit Provider Nurse Practitioner Family
DX: E78.5 Hyperlipidemia, unspecified (principal)
CPT/HCPCS: 80053; 80061